=== PATIENT | male | born 1940 | race Caucasian/White ===

== ENCOUNTER → 2018-02-16 | Outpatient (REF) | payer MEDICARE ==
[2018-02-16 12:12] LABS: INR 1.16
== END ==
LOC: M LABDRAW1 11:33
DX: M17.0 Bilateral primary osteoarthritis of knee (principal); Z79.01 Long term (current) use of anticoagulants
CPT/HCPCS: 85610

== ENCOUNTER 2018-05-08 18:36 | Emergency (ER) | payer MEDICARE ==
[~2018-05-08] VITALS: Ht 172.7 cm; Wt 100.0 kg
[~2018-05-08 18:36] MED LIST: CALC1TAB63 PO; CLAR10CA3 PO; DOXA2TAB3 PO; FURO40TA2 PO; HYDR-3713 PO; LOSA25TA14 PO; MOBI4TAB PO; MULTCAP PO; OCUVTAB PO; PROZ10CA7 PO; TRAM50TA2 PO; TRAV04OPD OS; TRAZ-160 PO; TROS20TA3 PO; TYLE1TAB5 PO; VITA500T PO; XARE20TA PO
[2018-05-08] MEDS ORDERED: DOXA1TAB42 PO (18:57)
[2018-05-08] MEDS ORDERED: VESI5TAB2 PO (18:57)
[2018-05-08] MEDS ORDERED: SILD1TAB8 PO (18:57)
[2018-05-08] MEDS ORDERED: LOSA25TA14 PO (18:57)
[2018-05-08] MEDS ORDERED: HYDR-3716 PO (18:57)
[2018-05-08 19:28] LABS: BASO % 0.3 % (0.0-1.0); EOS # 0.1 10^3/uL (0.0-0.50); EOS % 1.2 % (0.0-3.0); HEMATOCRIT 39.5 % (42.0-52.0); HEMOGLOBIN 13.2 g/dl (13.5-17.5); LYMPH # 0.9 10^3/uL (1.5-4.5); LYMPH % 7.9 % (24.0-44.0); MEAN CORPUSCULAR HEMOGLOBIN 33.8 pg (27.0-33.0); MEAN CORPUSCULAR HGB CONC 33.4 g/dl (32.0-36.5); MONO # 0.6 10^3/uL (0.0-0.8); MONO % 5.8 % (0.0-5.0); NEUTROPHILS # 9.4 10^3/uL (1.8-7.7); NEUTROPHILS % 84.5 % (36.0-66.0); PLATELET COUNT, AUTOMATED 198 10^3/uL (150-450); RED BLOOD COUNT 3.91 10^6/uL (4.30-6.10); WHITE BLOOD COUNT 11.1 10^3/uL (4.0-10.0)
[2018-05-08 19:39] LABS: INR 1.35; PROTHROMBIN TIME 16.9 SECONDS (12.1-14.4)
[2018-05-08 19:40] LABS: PARTIAL THROMBOPLASTIN TIME 38.2 SECONDS (25.4-37.6)
[2018-05-08] MEDS ORDERED: NS 1,000 ML IV ONE (19:45)
[2018-05-08] MEDS ORDERED: MORPHINE 4 MG/ML 1ML VIAL/SYRINGE (J2270) IV ONE (19:45)
[2018-05-08 19:50] LABS: ALBUMIN 3.7 GM/DL (3.2-5.2); ALT/SGPT 26 U/L (12-78); AMYLASE 45 U/L (25-115); BILIRUBIN,DIRECT 0.5 MG/DL (0.0-0.2); BILIRUBIN,TOTAL 1.7 MG/DL (0.2-1.0); BLOOD UREA NITROGEN 24 MG/DL (7-18); CALCIUM LEVEL 8.9 MG/DL (8.8-10.2); CARBON DIOXIDE LEVEL 28 MEQ/L (21-32); CHLORIDE LEVEL 104 MEQ/L (98-107); CREATININE FOR GFR 1.08 MG/DL (0.70-1.30); GLOMERULAR FILTRATION RATE > 60.0 (>42); GLUCOSE, FASTING 137 MG/DL (70-100); LIPASE 93 U/L (73-393); POTASSIUM SERUM 3.6 MEQ/L (3.5-5.1); SODIUM LEVEL 139 MEQ/L (136-145)
--- NOTE | 2018-05-08 21:22 | REPVR ---
EXAM: CT Abdomen and Pelvis Without Contrast EXAM DATE/TIME: 05/08/2018 7:48 PM CLINICAL HISTORY: 78 years old, male; Pain; Abdominal pain; Localized; Lower; Additional info: Groin pain, gross hematuria TECHNIQUE: Axial computed tomography images of the abdomen and pelvis without contrast. All CT scans at this facility use at least one of these dose optimization techniques: automated exposure control; mA and/or kV adjustment per patient size (includes targeted exams where dose is matched to clinical indication); or iterative reconstruction. Coronal and sagittal reformatted images were created and reviewed. COMPARISON: No relevant prior studies available. FINDINGS: Tubes, catheters and devices: The pacemaker electrode is seen in the right ventricle. Lower thorax: The heart is slightly enlarged. There is mitral valvular calcification. There is a small hiatal hernia ABDOMEN: Liver: Normal. No mass. Gallbladder and bile ducts: Normal. No calcified stones. No ductal dilation. Pancreas: Normal. No ductal dilation. Spleen: Normal. No splenomegaly. Adrenals: Normal. No mass. Kidneys and ureters: Normal. No hydronephrosis. Stomach and bowel: Mild inflammatory changes surround the sigmoid colon. There is sigmoid colonic diverticulosis. The inflamed segment of sigmoid colon is contiguous with the left lateral margin of the bladder. Appendix: No evidence of appendicitis. PELVIS: Bladder: The bladder is distended measuring 12.9 x 9.5 x 10.2 cm for a volume of 650 cc. mild inflammatory changes related to the diverticulitis surround a left lateral margin of the bladder. Reproductive: A TURP defect is noted in the prostate. The prostate is lobulated in contour measuring at least 5.5 x 5 x 3.8 cm. ABDOMEN and PELVIS: Intraperitoneal space: Normal. No free air. No significant fluid collection. Bones/joints: There is advanced osteoarthritis of the right hip joint with joint space narrowing subchondral sclerosis and cyst formation. Large marginal osteophytes are present. There is mild narrowing of the left hip joint as well. There is advanced discogenic disease within the lumbar spine. Grade 1 spondylolisthesis at L3-4 with the 5 millimeters of anterolisthesis of L4 with respect to L3. Grade 1 spondylolisthesis at L4-5- with 4.6 mm of anterolisthesis of L5 with respect to L4. Degenerative changes noted between the spinous processes from L2-S1. Facet arthropathy in the lower lumbar spine. Soft tissues: There small bilateral inguinal hernias containing fat. There is an 8mm umbilical hernia containing fat. Vasculature: Normal. No abdominal aortic aneurysm. Lymph nodes: Normal. No enlarged lymph nodes. IMPRESSION: 1. Sigmoid colonic diverticulitis. No abscess. No perforation. 2. TURP defect within the prostate. The prostate is enlarged. 3. Small hiatal hernia 4. Small bilateral inguinal hernias containing fat. Umbilical hernia containing fat. No evidence of strangulation. Electronically signed by: Sabine Henriquez On 05/08/2018 21:22:00 PM
[2018-05-08] MEDS ORDERED: BACT800T5 PO (22:39)
[2018-05-08] MEDS ORDERED: FLOM0.4C39 PO (22:39)
[2018-05-08] MEDS ORDERED: BACTRIM 160MG/800MG DS TAB PO ONE (22:45)
[2018-05-08 23:00] VITALS: BP 145/84
[2018-05-08] MEDS ORDERED: NORCO, ANEXSIA 5/325MG TABLET (HYDROcodone/ACETAMINOPHEN) PO ONE (23:15)
--- NOTE | 2018-05-09 06:03 | ECGEPIP ---
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 Order Number: [id number] Reading MD: Ananth Choe Measurements Intervals [place] Rate: 65 P: VT: 0 QRS: 14 QRSD: 102 T: -37 QT: 426 QTc: 443 Interpretive Statements ATRIAL FIBRILLATION WITH ABERRANT CONDUCTION OR VENTRICULAR PREMATURE COMPLEXES INCOMPLETE RIGHT BUNDLE BRANCH BLOCK MODERATE T-WAVE ABNORMALITY, CONSIDER LATERAL ISCHEMIA NO PRIORS FOR COMPARISON Electronically Signed On 05-09-2018 6:03:33 EST by Ananth Choe
== END 2018-05-08 23:59 | disposition left against medical advice (07) ==
LOC: M ED 18:36
DX: R33.9 Retention of urine, unspecified (principal); R31.0 Gross hematuria; I10 Essential (primary) hypertension; N40.0 Benign prostatic hyperplasia without lower urinary tract symptoms; I48.91 Unspecified atrial fibrillation; Z79.899 Other long term (current) drug therapy; Z79.01 Long term (current) use of anticoagulants
CPT/HCPCS: 36415; 51702; 74176; 80048; 80076; 81001; 82150; 83690; 85025; 85610; 85730; 87086; 93005; 96374; 99284; J2270

== ENCOUNTER → 2018-05-10 | Outpatient (CLI) | payer MEDICARE ==
[~2018-05-10] MED LIST changes: +APAP500T10 PO; +BACT800T5 PO; +CALC600T7 PO; +DOXA1TAB42 PO; +FLOM0.4C39 PO; +FLUO10CA8 PO; +HYDR-3716 PO; +KEFL500C17 PO; +MELA3TAB49 PO; +MELO15TA28 PO; +MELO7.5T7 PO; +OXYC1TAB23 PO; +PERC5TAB12 PO; +SILD1TAB8 PO; +TRAV04OPD OU; +VESI5TAB2 PO; +VITA100T59 PO; +VITMTA PO; +XARE10TA PO; +[UNRECOGNIZED DRUG - OTHER] PO; +[UNRECOGNIZED DRUG - OTHER] PO
--- NOTE | 2018-05-10 13:55 | REP ---
URINARY TRACT SONOGRAPHY: HISTORY: Urinary retention. Moon catheter. FINDINGS: Scanning at the level of the urinary bladder demonstrates a Moon balloon at the base of the bladder. Bladder wall is minimally thickened. No other abnormality. Emptying ureteral jets are confirmed bilaterally on color Doppler interrogation of the bladder lumen from both ureters. Renal cortical echogenicity pattern is normal and renal contours are smooth bilaterally. There is no evidence of hydronephrosis on either side. No renal mass or cyst is seen. The right kidney measures 12.3 x 5.3 x 4.8 cm. Left renal dimensions are 11.6 x 5.3 x 6.3 cm. IMPRESSION: Moon catheter in the urinary bladder. Minimal diffuse bladder wall thickening. No hydronephrosis or other upper tract abnormality. Electronically Signed by Ivan Rivera MD 05/10/2018 07:28 P
== END ==
LOC: M SMT 10:55
PROVIDERS: ATTEND Urology Pediatric Urology
DX: R33.9 Retention of urine, unspecified (principal); Z97.8 Presence of other specified devices
CPT/HCPCS: 76770; 76857; G0463

== ENCOUNTER → 2018-05-19 | Outpatient (CLI) | payer MEDICARE ==
[~2018-05-19] MED LIST changes: -APAP500T10 PO; -CALC600T7 PO; +CYSTO-CONRAY II 17.2% 250ML VIAL (Q9958) As Ordered ONE; -FLUO10CA8 PO; -KEFL500C17 PO; -MELA3TAB49 PO; -MELO15TA28 PO; -MELO7.5T7 PO; -OXYC1TAB23 PO; -PERC5TAB12 PO; -TRAV04OPD OU; -VITA100T59 PO; -VITMTA PO; -XARE10TA PO; -[UNRECOGNIZED DRUG - OTHER] PO; -[UNRECOGNIZED DRUG - OTHER] PO
--- NOTE | 2018-05-19 17:36 | REP ---
Voiding cystourethrogram: History: Urinary retention. Findings: The patient's indwelling Moon catheter was utilized to fill the bladder. The patient had limited bladder capacity and spontaneously voided around the catheter. No urethral abnormality is observed on voiding films. There is trabeculation of the bladder wall confirming limited filling. No reflux was observed. There is complete emptying. We were not able to retrieve a clean catch urine specimen after removal of the catheter. No filling defect is seen. Impression: Limited bladder capacity, bladder trabeculation. No urethral abnormality or reflux seen. 0.4 minutes of fluoroscopy time was utilized. Electronically Signed by Ivan Rivera MD 05/19/2018 07:43 P
== END ==
LOC: M RADPRO 14:02
PROVIDERS: ATTEND Urology Pediatric Urology
DX: N32.89 Other specified disorders of bladder (principal)
CPT/HCPCS: 51600; 74455; Q9958

== ENCOUNTER → 2018-05-20 | Outpatient (CLI) | payer MEDICARE ==
[~2018-05-20] MED LIST changes: +CALC600T7 PO; -CYSTO-CONRAY II 17.2% 250ML VIAL (Q9958) As Ordered ONE; +FLUO10CA8 PO; +MELA3TAB49 PO; +VITA100T59 PO; +VITMTA PO; +[UNRECOGNIZED DRUG - OTHER] PO
[2018-05-20 18:56] LABS: AMORPHOUS SEDIMENT LARGE (NEGATIVE); BACTERIA, URINE AUTO NEGATIVE (NEGATIVE); MUCUS, URINE SMALL (NEGATIVE); RBC, URINE AUTO 1 /HPF (0-3); SQUAMOUS EPITHELIAL CELL UR AU 0 /HPF (0-6); WBC, URINE AUTO 8 /HPF (0-3)
[2018-05-23 00:06] LABS: PSA % FREE 11.7 % (.); PSA FREE 0.76 ng/mL; PSA TOTAL 6.5 ng/mL (0.0-4.0)
== END ==
LOC: M SMT 13:46
PROVIDERS: ATTEND Specialist
DX: R33.9 Retention of urine, unspecified (principal); R97.20 Elevated prostate specific antigen [PSA]; R31.9 Hematuria, unspecified
CPT/HCPCS: 36415; 51798; 81015; 84154; 87086; G0463

== ENCOUNTER 2018-05-24 07:30 | Inpatient (IN) | payer MEDICARE ==
[~2018-05-24] VITALS: Ht 167.6 cm; Wt 102.9 kg
[~2018-05-24 07:30] MED LIST changes: -CALC600T7 PO; -FLUO10CA8 PO; -MELA3TAB49 PO; -VITA100T59 PO; -VITMTA PO; -[UNRECOGNIZED DRUG - OTHER] PO
[2018-06-10] MEDS ORDERED: [UNRECOGNIZED DRUG - OTHER] PO (08:30)
[2018-06-10] MEDS ORDERED: FURO40TA2 PO (08:30)
[2018-06-10] MEDS ORDERED: VITA100T59 PO (08:30)
[2018-06-10] MEDS ORDERED: TRAZ-160 PO (08:30)
[2018-06-10] MEDS ORDERED: VITMTA PO (08:30)
[2018-06-10] MEDS ORDERED: TYLE1TAB5 PO (08:30)
[2018-06-10] MEDS ORDERED: MELA3TAB49 PO (08:30)
[2018-06-10] MEDS ORDERED: FLUO10CA8 PO (08:30)
[2018-06-10] MEDS ORDERED: CALC600T7 PO (08:30)
[2018-06-10] MEDS ORDERED: HYDR-3713 PO (08:30)
[2018-06-10] MEDS ORDERED: CLAR10CA3 PO (08:30)
[2018-06-10] MEDS ORDERED: TRAV04OPD OU (08:30)
[2018-06-10] MEDS ORDERED: XARE20TA PO (08:30)
--- NOTE | 2018-06-15 12:21 | HPE ---
DATE OF ADMISSION: 06/16/2018 ATTENDING PHYSICIAN: Dr. Rell Christine CHIEF COMPLAINT: Right hip pain and stiffness. HISTORY OF PRESENT ILLNESS: This a pleasant 78-year-old male with progressively worsening right hip pain and stiffness who failed to improve with conservative management and has elected for surgery for his continued symptoms. He has been consented for a right total hip arthroplasty by Dr. Christine. ALLERGIES: NO KNOWN DRUG ALLERGIES. CURRENT MEDICATIONS: - furosemide 40 mg 1 by mouth daily - melatonin 3 mg 1 by mouth at bedtime - Mobic 7.5 mg 1 by mouth daily - Bactrim DS discontinued - Travatan Z 0.004% - trazodone 50 mg - extra strength Tylenol as needed - Xarelto PAST MEDICAL HISTORY: 1. Hypertension 2. Atrial fibrillation (A-fib) 3. Benign prostatic hypertrophy. PAST SURGICAL HISTORY: 1. Appendectomy. 2. Vasectomy. 3. Pacemaker. 4. Transurethral resection of prostate. FAMILY HISTORY: Noncontributory. SOCIAL HISTORY: The patient does not smoke and does not use alcohol. REVIEW OF SYSTEMS: Denies fever, chills, chest pain, shortness breath, nausea, vomiting, diarrhea. Denies any recent upper respiratory or urinary tract infection symptoms. PHYSICAL EXAMINATION: VITAL SIGNS: Height 5/5, weight 225.6, temperature 98.6, blood pressure 138/72, pulse 76. HEENT: Normocephalic, atraumatic. LUNGS: Clear to auscultation bilaterally with no wheezes, rales, rhonchi. CARDIOVASCULAR: S1 and S2 auscultated. ABDOMEN: Soft, nontender. NECK: Supple with no lymphadenopathy or jugular venous distention (JVD). RIGHT HIP: Intact range of motion, tenderness on palpation about the groin, overlying skin is intact. EKG noted with atrial fibrillation (A-fib), right bundle branch block. Chest x-ray cardiomegaly with pacemaker, no acute changes. LABORATORY DATA: White blood count 6, red blood count 3.85, hemoglobin 12.7, hematocrit 37.9, PT 25.5, INR 2.27, BUN 18, creatinine of 1.08. Please add to the current medications. Preoperative medical optimization by Dr. Jiang reviewed today on chart. Additionally urology clearance reviewed today on chart. IMPRESSION: 1. Right hip degenerative changes. 2. Symptomatic osteoarthritis. PLAN: Consented for right total hip arthroplasty by Dr. Christine
[2018-06-16] VITALS (7 sets, daily range): BP systolic 101–158; BP diastolic 68–96
[2018-06-16] MEDS ORDERED: LR 1,000 ML IV SCH ×2 (05:45→10:30)
[2018-06-16] MEDS ORDERED: fentaNYL 100 MCG/2 ML INJECTION (J3010) As Ordered ONE (06:59)
[2018-06-16] MEDS ORDERED: PROPOFOL 200 MG/20 ML VIAL As Ordered ONE (06:59)
[2018-06-16] MEDS ORDERED: ROCURONIUM BROMIDE 50 MG/5 ML VIAL As Ordered ONE (06:59)
[2018-06-16] MEDS ORDERED: ONDANSETRON 4MG/2ML VIAL (J2405) As Ordered ONE (06:59)
[2018-06-16] MEDS ORDERED: LIDOCAINE 2% INJ 100 MG/5 ML SDV (FOR ANES.) As Ordered ONE (06:59)
[2018-06-16] MEDS ORDERED: MIDAZOLAM INJ 2 MG/2 ML VIAL (J2250) As Ordered ONE (07:00)
[2018-06-16] MEDS ORDERED: ACETAMINOPHEN 500 MG TAB As Ordered ONE (07:00)
[2018-06-16] MEDS ORDERED: ACETAMINOPHEN 500 MG TAB PO ONE (07:15)
[2018-06-16] MEDS ORDERED: ceFAZolin 1GM INJ (J0690 PER 500MG) As Ordered ONE (07:16)
[2018-06-16 07:48] LABS: INR 1.17; PROTHROMBIN TIME 15.1 SECONDS (12.1-14.4)
[2018-06-16] MEDS ORDERED: ePHEDrine SULFATE 25 MG/5 ML(5MG/ML) SYRINGE As Ordered ONE (08:49)
[2018-06-16] MEDS ORDERED: PHENYLephrine HCL 500 MCG/5 ML (100MCG/ML) SYRINGE (J2370) As Ordered ONE (08:49)
[2018-06-16] MEDS ORDERED: MORPHINE 1MG/ML IN 0.9% NACL 100ML IV BAG As Ordered ONE (09:46)
[2018-06-16] MEDS ORDERED: METOCLOPRAMIDE INJ 10MG/2ML VIAL (J2765) IV PRN (10:30)
[2018-06-16] MEDS ORDERED: NALBUPHINE HCL 10 MG/ML AMP (J2300) IV PRN (10:30)
[2018-06-16] MEDS ORDERED: FLEET ENEMA PR PRN (10:30)
[2018-06-16] MEDS ORDERED: ACETAMINOPHEN TAB 650MG DOSE (2X325MG) PO PRN (10:30)
[2018-06-16] MEDS ORDERED: NALOXONE INJ 0.4 MG/1 ML VIAL (J2310) IV PRN (10:30)
[2018-06-16] MEDS ORDERED: fentaNYL 100 MCG/2 ML INJECTION (J3010) IV PRN (10:30)
[2018-06-16] MEDS ORDERED: MORPHINE 1MG/ML IN 0.9% NACL 100ML IV BAG IV PRN (10:30)
[2018-06-16] MEDS ORDERED: diphenhydrAMINE INJ 50MG/ML VIAL (J1200) IV PRN (10:30)
[2018-06-16] MEDS ORDERED: EPIDURAL/PCA KEYS XX PRN (10:30)
[2018-06-16] MEDS ORDERED: PERCOCET 5MG/325MG TAB PO PRN (10:30)
[2018-06-16] MEDS ORDERED: MEPERIDINE INJ 25 MG/ML VIAL (J2175) IV PRN (10:30)
[2018-06-16] MEDS ORDERED: ONDANSETRON 4MG/2ML VIAL (J2405) IV PRN ×2 (10:30)
[2018-06-16] MEDS: LR 1,000 ML IV SCH (14:22)
--- NOTE | 2018-06-16 14:56 | REP ---
RIGHT HIP: Three portable views of the right hip are performed. There is a total hip prosthesis which appears to be in good position. Structures are well aligned. Metallic skin eder are seen laterally. Metallic clips are seen medially near the scrotum. There are vascular calcifications in the soft tissues. Electronically Signed by Pablo Uriarte MD 06/16/2018 08:11 P
[2018-06-16] MEDS ORDERED: RAMELTEON 8 MG TAB (ROZEREM) PO PRN (22:15)
[2018-06-17] MEDS: LR 1,000 ML IV SCH (01:59)
[2018-06-17 02:00] VITALS: BP 147/97
[2018-06-17 06:00] VITALS: BP 135/89
[2018-06-17] MEDS ORDERED: PERCOCET 5MG/325MG TAB PO PRN ×2 (06:30)
[2018-06-17] MEDS ORDERED: ONDANSETRON 4 MG TAB (S0181) PO PRN (06:30)
[2018-06-17 06:53] LABS: HEMATOCRIT 33.3 % (42.0-52.0); HEMOGLOBIN 10.8 g/dl (13.5-17.5); MEAN CORPUSCULAR HEMOGLOBIN 33.5 pg (27.0-33.0); MEAN CORPUSCULAR HGB CONC 32.4 g/dl (32.0-36.5); MEAN CORPUSCULAR VOLUME 103.4 fl (80.0-96.0); PLATELET COUNT, AUTOMATED 194 10^3/uL (150-450); RED BLOOD COUNT 3.22 10^6/uL (4.30-6.10); WHITE BLOOD COUNT 12.3 10^3/uL (4.0-10.0)
--- NOTE | 2018-06-17 06:54 | CR ---
DATE OF CONSULTATION: 06/16/2018 REQUESTING PROVIDER: Dr. Christine REASON FOR CONSULTATION: Medical management status post right hip arthroplasty. HISTORY OF PRESENT ILLNESS: This is a very pleasant 78-year-old male who had progressively worsening right hip pain and stiffness, failing to improve with conservative management. He had elective right hip arthroplasty this morning by Dr. Christine. He is seen at bedside on [address] and is doing well postoperatively. He denies any chest pain, shortness of breath, nausea, vomiting, constipation, or difficulty urinating. He denies fevers or chills. He states that he is receiving wonderful nursing care. He has no acute complaints. REVIEW OF SYSTEMS: CONSTITUTIONAL: Denies fevers, chills, weight loss, night sweats or changes to his appetite. HEENT: Denies headache, vision changes, runny nose, stuffy nose, epistaxis, sinus pain, tinnitus, sore throat or odynophagia. CARDIOVASCULAR: Denies chest pain, paroxysmal nocturnal dyspnea (PND), orthopnea, edema or palpitations. RESPIRATORY: Denies cough, sputum production, wheezes, hemoptysis, shortness of breath. GASTROINTESTINAL (GI): Denies any belly pain, difficulty swallowing, indigestion, anorexia, nausea, vomiting, diarrhea, constipation, obstipation, hematemesis, hematochezia, melena or tenesmus. GENITOURINARY: Denies any dysuria, hematuria or incontinence. Does admit to a history of benign prostatic hypertrophy (BPH) and will sometimes have nocturia. MUSCULOSKELETAL: Admits to a history of arthritis, but denies any joint swelling or stiffness at the moment. He is status post right total hip arthroplasty. INTEGUMENTARY: Denies any new rashes, lesions, striae or pruritus. NEURO: Denies any changes to sight/smell/hearing/taste, seizures, headaches, paresthesias, numbness, or dyspnea. PSYCH: Positive for history of mild depression. Denies anxiety, paranoia, anhedonia or diya. ENDOCRINE: Denies diarrhea, sweatiness, mood swings, tremors, palpitations, constipation, dry skin or thinning hair. He denies polydipsia, polyphagia or polyuria. HEMATOLOGIC: Denies anemia, purpura or petechiae. He states that he has had some blood oozing from his incision site. LYMPHATIC: Denies any new lumps or bumps anywhere. PAST MEDICAL HISTORY: 1. Hypertension. 2. Atrial fibrillation. 3. Congestive heart failure. 4. BPH. 5. Osteoarthritis. 6. Depression. 7. Insomnia. 8. Glaucoma. PAST SURGICAL HISTORY: 1. Appendectomy. 2. Vasectomy. 3. Pacemaker, which the patient states was for atrial fibrillation. He does follow with Dr. Dykes as outpatient. 4. Transurethral resection of the prostate in 2013. HOME MEDICATIONS: - vitamin C 100 mg by mouth daily - calcium/vitamin D 600/200 mg one tablet by mouth daily - doxazosin 1 mg by mouth twice a day - fluoxetine 10 mg by mouth daily - furosemide 40 mg by mouth daily - loratadine 10 mg by mouth daily - losartan 25 mg by mouth daily - melatonin 3 mg by mouth every evening as needed - multivitamin one tablet by mouth every morning - Xarelto 20 mg by mouth daily - sildenafil 40 mg by mouth daily as needed - Travatan Z one drop left eye (OS) every evening - trazodone 50 mg by mouth at bedtime as needed FAMILY HISTORY: Noncontributory. SOCIAL HISTORY: The patient denies tobacco or drug use. He states that occasionally he will have one beer or a glass of wine at night sometimes. He recently moved here in August from [place], and has lived in [place] as well as [facility] previously. Denies any recent travel except up to [facility]. He currently lives with his . PHYSICAL EXAMINATION: VITAL SIGNS: Temperature 97.3, pulse 79 and irregular, respiratory rate 20, blood pressure 158/96, pulse oximetry is 95% on room air. GENERAL: Awake, alert, well-nourished elderly male in no acute distress. He is very pleasant and cooperative. HEENT: Normocephalic, atraumatic. Mucous membranes are moist. Extraocular eye muscles are intact. Pupils are equal, round and reactive to light bilaterally. NECK: Supple, nontender, no lymphadenopathy. HEART: Irregular rhythm, not tachycardic. No murmurs, gallops or rubs. LUNGS: Clear to auscultation bilaterally. No wheezes, rhonchi or rales. ABDOMEN: Normoactive bowel sounds, soft, nontender. EXTREMITIES: There is a bandage over the right hip has some blood saturation at the inferior aspect. Otherwise, is dry and intact. Peripheral pulses are 2+ bilaterally. There is no clubbing, cyanosis or edema. SKIN: No rashes are seen. NEURO: Awake, alert and oriented times three. 5/5 muscle strength bilaterally in the upper extremities. The patient is moving his extremities freely and there is no focal neurologic deficit noted. LABORATORY DATA: Coagulation: PT 15.1, INR 1.17. ESR 8. Blood bank: Blood type A+, antibody screen negative. IMAGING STUDIES: Right hip x-ray postop shows a total hip prosthesis in good position, structures are well aligned, metallic skin eder are seen laterally. Metallic clips seen medially near the scrotum. Vascular calcifications in the soft tissues. ASSESSMENT: This is a very pleasant 78-year-old male who is status post right total hip arthroplasty by Dr. Christine, doing well postoperatively. Hospitalist service was consulted for medical management. PLAN: 1. Right hip osteoarthritis. Status post right hip arthroplasty by Dr. Christine this morning. Pain management per ortho. 2. Congestive heart failure (CHF). Outpatient he sees Dr. Dykes. We will resume his furosemide in the morning. 3. Atrial fibrillation. Currently not on any rate controlling medications that I can see. His rate is in the 70s at the moment. He is on Xarelto at home. Anticoagulation per orthopedics. 4. Hypertension. His blood pressure is stable right now. We will resume his home losartan, Lasix and doxazosin tomorrow morning. 5. BPH. He is status post transurethral resection of prostate (TURP) in 2013. We will resume his doxazosin tomorrow morning. 6. Depression. Continue fluoxetine tomorrow. 7. Insomnia. The patient takes melatonin and trazodone outpatient for sleep as needed. I have ordered Rozerem for him as he needs it. 8. Glaucoma. Continue his Travatan Z 0.004% eye drops. 9. Seasonal allergies. Continue his loratadine. 10. DVT prophylaxis. The patient has thromboembolic deterrent stockings (TEDS) and sequentials. Anticoagulation per orthopedics. DISPOSITION: Per ortho. The patient will be under the care of Dr. Hernandez starting at 0700 hours on 06/17/2018. My faculty preceptor for this patient encounter was physically present during the encounter and was fully available. All aspects of the patient interview, examination, medical decision making process, and medical care plan development were reviewed and approved by the faculty preceptor. The faculty preceptor is aware and concurs with the plan as stated in the body of this note and will attest to such by his/her co-signature.
[2018-06-17 07:05] LABS: INR 1.26
[2018-06-17 07:22] LABS: BLOOD UREA NITROGEN 22 MG/DL (7-18); CALCIUM LEVEL 8.1 MG/DL (8.8-10.2); CARBON DIOXIDE LEVEL 26 MEQ/L (21-32); CHLORIDE LEVEL 103 MEQ/L (98-107); GLOMERULAR FILTRATION RATE > 60.0 (>42); GLUCOSE, FASTING 153 MG/DL (70-100); POTASSIUM SERUM 4.1 MEQ/L (3.5-5.1); SODIUM LEVEL 136 MEQ/L (136-145)
[2018-06-17] MEDS ORDERED: XARE10TA PO (08:46)
[2018-06-17] MEDS ORDERED: PERC5TAB12 PO (08:46)
[2018-06-17] MEDS ORDERED: MULTIVITAMINS/MINERALS THERAP 1 TAB PO SCH (09:00)
[2018-06-17] MEDS ORDERED: DOXAZOSIN MESYLATE 1 MG TAB PO SCH (09:00)
[2018-06-17] MEDS ORDERED: FUROSEMIDE 40 MG TAB PO SCH (09:00)
[2018-06-17] MEDS ORDERED: LOSARTAN 50 MG TAB PO SCH (09:00)
[2018-06-17] MEDS ORDERED: MOM 30ML SUSPENSION UDC PO SCH (09:00)
[2018-06-17] MEDS ORDERED: FLUoxetine 10 MG CAP PO SCH (09:00)
[2018-06-17] MEDS ORDERED: LORATADINE 10 MG TAB PO SCH (09:00)
[2018-06-17] MEDS ORDERED: SENOKOT S TAB PO SCH (09:00)
[2018-06-17] MEDS ORDERED: MIRALAX *UNIT DOSE* 17GM PACKET PO SCH (09:00)
[2018-06-17 09:15] VITALS: BP 139/74
[2018-06-17 09:42] VITALS: BP 139/74
--- NOTE | 2018-06-17 15:18 | IPNPDOC ---
Text Note Date of Service The patient was seen on 06/17/18. NOTE Subjective: Patient was seen and examined at the bedside. , Currently patient denies any chest pain, shortness of breath or palpitations. Denies any nausea, vomiting, abdominal pain. He has not experienced a bowel movement yet. Has the ability to pass flatus. Patient has already started to work with physical therapy yesterday and will continue to do so today. . He is anticipated to clear physical therapy today. Objective: Vitals (See below) General: Lying in bed, no acute distress, comfortable, AAOx3 HEENT: NC, AT CVS: RRR, +S1S2 Lungs: Fair air entry b/l, -w/r/r Abdomen: Soft, ND, NT Extremities: - Edema, - Calf tenderness Assessment and plan: Right hip pain - likely 2/2 osteoarthritis - s/p total right hip arthroplasty (POD#1) - Presented to [facility] for an elective orthopedic procedure - Has received medical clearance via his outpatient provider - Pain control and physical therapy of the direction of orthopedic surgery Liz holcomb - Currently not on rate / rhythm control - Will be resuming Xarelto - Follows with Dr. Dykes as an outpatient HTN - BP well controlled - c/w Losartan CHF - c/w Furosemide BPH - s/p TURP 2014 - c/w Doxazosin on discharge Depression / Insomnia - Fluoxetine Glaucoma DVT prophylaxis - Will be resumed on Xarelto VS,Fishbone, I+O VS, Fishbone, I+O Laboratory Tests 06/17/18 06:40 Red Blood Count 3.22 L, Mean Corpuscular Volume 103.4 H, Mean Corpuscular Hemoglobin 33.5 H, Mean Corpuscular Hemoglobin Concent 32.4, Red Cell Distribution Width 13.7, Calcium Level 8.1 L Vital Signs Date Time Temp Pulse Resp B/P (MAP) Pulse Ox O2 Delivery O2 Flow Rate FiO2 06/17/18 09:42 139/74 06/17/18 09:40 16 06/17/18 09:15 97.2 66 94 06/16/18 11:55 Room Air I&O- Last 24 Hours up to 6 AM 06/17/18 06:00 Intake Total 2816 ml Output Total 550 ml Balance 2266 ml JOSIANE COHEN MD Jun 17, 2018 15:18
[2018-06-17] MEDS ORDERED: RIVAROXABAN 10 MG TAB (XARELTO) PO SCH (18:00)
[2018-06-17] MEDS ORDERED: LATANOPROST 0.005% OPHTH SOLN 2.5 ML OS SCH (21:00)
[2018-06-18] MEDS ORDERED: MELO15TA28 PO (01:48)
[2018-06-18] MEDS ORDERED: APAP500T10 PO (01:48)
[2018-06-18] MEDS ORDERED: OXYC1TAB23 PO (01:55)
[2018-06-18] MEDS ORDERED: [UNRECOGNIZED DRUG - OTHER] PO (04:42)
[2018-06-18] MEDS ORDERED: MELO7.5T7 PO (04:43)
--- NOTE | 2018-06-18 13:44 | RO ---
DATE OF PROCEDURE: 06/16/2018 PREOPERATIVE DIAGNOSIS: Right hip degenerative arthritis. POSTOPERATIVE DIAGNOSIS: Right hip degenerative arthritis. PROCEDURE: Right total hip arthroplasty using a size 62 Gription cup with a neutral 62-mm liner and a 40-mm femoral head with +1.5 neck high-offset with a size 6 [place] stem. SURGEON: Edmar Christine MD SPOILAGE WORKER: Cade Galicia PA-C ANESTHESIA: Spinal. COMPLICATIONS: None. ESTIMATED BLOOD LOSS: 200 mL. SPECIMENS: Femoral head. DESCRIPTION OF PROCEDURE: Antibiotics were given intravenously preoperatively, and a successful spinal anesthetic was induced. He was placed in a lateral decubitus position. His right hip uppermost, down leg well padded, especially the perineal nerve, and the axillary roll was utilized. The right hip area was then carefully prepped and draped in the usual sterile fashion. After appropriate time-out, a longitudinal incision was made for a direct anterolateral approach to the hip. Bovie cautery was used to coagulate crossing vessels down to the tensor fascia, which was then divided in line with the skin incision. Then, the tensor fascia was divided in line with the skin incision. We split the gluteus medius, anterior one-third and posterior two-third junctions. We carefully dissected down to the gluteus minimus and anterior hip capsule, divided it longitudinally, carefully dissected off the anterior femur as we eventually dislocated the hip anteriorly. A starter reamer was placed in the pyriformis fossa, followed by the canal-finding reamer, then the lateralizing reamer. Then, we reamed up to a size 6 ultimately. A femoral neck osteotomy performed. Broaching begun up to a size 6 broach. A proximal femoral planer was utilized. We then exposed the acetabulum and did a labral excision 360 degrees. Then began reaming, beginning at 53, advanced up to 61. The trial 62 fit nicely. There was a couple of large cysts in the acetabulum which were curetted out and then bone grafted with a bone graft from the proximal femur. Then, the real #62 cup was placed without difficulty. It had good fixation. We irrigated prior to placing this in and then irrigated again and then placed the 62 liner. It fit nicely. We then placed the #6 broach, trialed with a high-offset 1.5 combination neck and head and then reduced the hip. It was found to be quite stable with flexion internal rotation and extension external rotation and minimal soft tissue telescoping. Thus, I felt this was the appropriate size to use. We removed the trial components, copiously irrigated out the femoral canal, placed the real #6 high-offset [place] stem, dried the trunnion, placed the 40 and +1.5 head and neck combination under the trunnion, then reduced the hip. Irrigated again. Closed the gluteus minimus and anterior capsule back anatomically with interrupted #1 polydioxanone suture (PDS) sutures. The gluteus medius was closed back anatomically with interrupted #1 PDS sutures. Then, we irrigated again. Then, closed the tensor fascia with a running #1 Stratafix. The subdermal tissues were closed with interrupted 2-0 PDS sutures, followed by eder and an Optifoam dressing, dry sterile bulky dressing. Then, he was turned supine and then transferred to the recovery room in stable condition. There were no intraoperative complications. ADDENDUM: 06/18/2018 Mr. Cade Galicia was critical to the success of this difficult operation by helping with appropriate soft tissue retraction, helping to dislocate the knee, relocate the hip several times throughout the operation, helped to close the wound, helped to prepare the patient, amongst many other tasks.
--- NOTE | 2018-06-20 22:15 | DSES ---
DATE OF ADMISSION: 06/16/2018 DATE OF DISCHARGE: 06/17/2018 DISCHARGE DIAGNOSIS: Right hip arthritis status post right total hip arthroplasty. HISTORY: This is a 78-year-old male with progressively worsening right hip pain and stiffness. He had failed to improve with conservative treatment. He elected for surgery for his continued symptoms. PROCEDURE PERFORMED: Right total hip arthroplasty. HOSPITAL COURSE: The patient was admitted on the day of surgery and underwent right total hip arthroplasty that was without complications. Afterward, the patient was up with physical therapy per the protocol and their pain was controlled. The patient was doing well on the day of discharge and was weightbearing as tolerated to his right lower extremity. He will resume preoperative medications and diet. He will use oral medications for pain control and he will use Xarelto 10 mg and thromboembolic deterrent stockings (TEDs) for 30 days postoperatively for deep vein thrombosis (DVT) prophylaxis. Additionally, the patient will follow up in the office in two weeks for wound check and staple removal. For further details please see the medical record.
== END 2018-06-17 11:05 | disposition home or self-care (01) | DRG 470 ==
LOC: M OR 06-16 05:34 → M MS5PR 06-16 12:02
PROVIDERS: ADMIT Orthopaedic Surgery; ATTEND Orthopaedic Surgery
PROC: 0SR902Z Replacement of Right Hip Joint with Metal on Polyethylene Synthetic Substitute, Open Approach (ICD-10-PCS; principal; 2018-06-16 07:30)
DX: M16.11 Unilateral primary osteoarthritis, right hip (principal); I11.0 Hypertensive heart disease with heart failure; I48.91 Unspecified atrial fibrillation; I50.9 Heart failure, unspecified; N40.0 Benign prostatic hyperplasia without lower urinary tract symptoms; F32.9 Major depressive disorder, single episode, unspecified; J30.2 Other seasonal allergic rhinitis; H40.9 Unspecified glaucoma; G47.00 Insomnia, unspecified; Z95.0 Presence of cardiac pacemaker; Z90.49 Acquired absence of other specified parts of digestive tract; Z90.79 Acquired absence of other genital organ(s); Z79.01 Long term (current) use of anticoagulants; Z79.899 Other long term (current) drug therapy; Z79.1 Long term (current) use of non-steroidal anti-inflammatories (NSAID)

== ENCOUNTER 2018-06-18 01:25 | Emergency (ER) | payer MEDICARE ==
[~2018-06-18] VITALS: Ht 167.6 cm; Wt 100.0 kg
[~2018-06-18 01:25] MED LIST changes: +CALC600T7 PO; +FLUO10CA8 PO; +MELA3TAB49 PO; +PERC5TAB12 PO; +TRAV04OPD OU; +VITA100T59 PO; +VITMTA PO; +XARE10TA PO; +[UNRECOGNIZED DRUG - OTHER] PO
[2018-06-18] MEDS ORDERED: MELO15TA28 PO (01:48)
[2018-06-18] MEDS ORDERED: APAP500T10 PO (01:48)
[2018-06-18] MEDS ORDERED: OXYC1TAB23 PO (01:55)
[2018-06-18 02:26] LABS: HEMATOCRIT 32.1 % (42.0-52.0); HEMOGLOBIN 10.5 g/dl (13.5-17.5); MEAN CORPUSCULAR HEMOGLOBIN 33.9 pg (27.0-33.0); MEAN CORPUSCULAR HGB CONC 32.7 g/dl (32.0-36.5); MEAN CORPUSCULAR VOLUME 103.5 fl (80.0-96.0); PLATELET COUNT, AUTOMATED 162 10^3/uL (150-450); WHITE BLOOD COUNT 10.4 10^3/uL (4.0-10.0)
[2018-06-18] MEDS ORDERED: PERCOCET 5MG/325MG TAB PO ONE (02:45)
--- NOTE | 2018-06-18 03:28 | ECGEPIP ---
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
[2018-06-18] MEDS ORDERED: [UNRECOGNIZED DRUG - OTHER] PO (04:42)
[2018-06-18] MEDS ORDERED: MELO7.5T7 PO (04:43)
[2018-06-18 05:14] LABS: BLOOD UREA NITROGEN 25 MG/DL (7-18); CALCIUM LEVEL 7.7 MG/DL (8.8-10.2); CARBON DIOXIDE LEVEL 27 MEQ/L (21-32); CHLORIDE LEVEL 105 MEQ/L (98-107); CREATININE FOR GFR 1.01 MG/DL (0.70-1.30); GLOMERULAR FILTRATION RATE > 60.0 (>42); GLUCOSE, FASTING 108 MG/DL (70-100); POTASSIUM SERUM 4.1 MEQ/L (3.5-5.1); SODIUM LEVEL 140 MEQ/L (136-145)
[2018-06-18 05:15] LABS: INR 2.03; PROTHROMBIN TIME 23.3 SECONDS (12.1-14.4)
[2018-06-18 05:16] LABS: PARTIAL THROMBOPLASTIN TIME 48.1 SECONDS (25.4-37.6)
[2018-06-18 06:00] VITALS: BP 120/64
--- NOTE | 2018-06-18 07:54 | REP ---
Right hip three views: There are two lateral views. The acetabular cup and femoral head component are suboptimally demonstrated on the 12/03 lateral views. On the AP view the components are tightly applied and in satisfactory positions alignment. Recommend follow-up lateral view. Electronically Signed by Pablo Cardenas MD 06/18/2018 07:46 A
== END 2018-06-18 06:25 | disposition home or self-care (01) ==
LOC: EDBD 01:25 → M ED 01:25 → CANBEDREQ 05:41 → M ED 06:25
DX: M96.842 Postprocedural seroma of a musculoskeletal structure following a musculoskeletal system procedure (principal); I48.91 Unspecified atrial fibrillation; I10 Essential (primary) hypertension

== ENCOUNTER 2018-06-25 10:41 | Emergency (ER) | payer MEDICARE ==
[~2018-06-25] VITALS: Ht 167.6 cm; Wt 102.3 kg
[~2018-06-25 10:41] MED LIST changes: +APAP500T10 PO; +MELO15TA28 PO; +MELO7.5T7 PO; +OXYC1TAB23 PO; +[UNRECOGNIZED DRUG - OTHER] PO
[2018-06-25 11:49] LABS: BASO % 0.4 % (0.0-1.0); EOS # 0.2 10^3/uL (0.0-0.50); EOS % 2.5 % (0.0-3.0); HEMATOCRIT 33.5 % (42.0-52.0); HEMOGLOBIN 10.8 g/dl (13.5-17.5); LYMPH # 0.9 10^3/uL (1.5-4.5); LYMPH % 12.2 % (24.0-44.0); MEAN CORPUSCULAR HEMOGLOBIN 33.1 pg (27.0-33.0); MEAN CORPUSCULAR HGB CONC 32.2 g/dl (32.0-36.5); MEAN CORPUSCULAR VOLUME 102.8 fl (80.0-96.0); MONO # 0.6 10^3/uL (0.0-0.8); MONO % 7.8 % (0.0-5.0); NEUTROPHILS # 5.8 10^3/uL (1.8-7.7); NEUTROPHILS % 76.3 % (36.0-66.0); PLATELET COUNT, AUTOMATED 269 10^3/uL (150-450); RED BLOOD COUNT 3.26 10^6/uL (4.30-6.10); WHITE BLOOD COUNT 7.6 10^3/uL (4.0-10.0)
[2018-06-25 12:02] LABS: INR 1.4; PROTHROMBIN TIME 17.4 SECONDS (12.1-14.4)
[2018-06-25 12:03] LABS: PARTIAL THROMBOPLASTIN TIME 40.9 SECONDS (25.4-37.6)
[2018-06-25 12:17] LABS: BLOOD UREA NITROGEN 15 MG/DL (7-18); CALCIUM LEVEL 8.6 MG/DL (8.8-10.2); CARBON DIOXIDE LEVEL 30 MEQ/L (21-32); CHLORIDE LEVEL 107 MEQ/L (98-107); CREATININE FOR GFR 1.06 MG/DL (0.70-1.30); GLOMERULAR FILTRATION RATE > 60.0 (>42); GLUCOSE, FASTING 131 MG/DL (70-100); POTASSIUM SERUM 4.4 MEQ/L (3.5-5.1); SODIUM LEVEL 144 MEQ/L (136-145)
--- NOTE | 2018-06-25 12:28 | REP ---
RIGHT LOWER EXTREMITY DOPPLER VENOUS ULTRASOUND: 06/25/2018. Clinical history: Status post right hip arthroplasty 06/16/2018. Postoperative swelling and pain. Findings: There were no prior studies. Technique: The deep venous system of the right lower extremity is evaluated with neavrez scale imaging, compression ultrasound, color imaging and duplex Doppler interrogation. Examination from the groin through the popliteal fossa into the proximal calf. Findings: There is full compressibility from the common femoral vein in the inguinal region through the popliteal vein. Color imaging confirms patency throughout the course of the deep venous system. There is respiratory variation and augmented flow at all levels. There is soft tissue edema in the lower extremity Impression: 1. No Doppler venous ultrasound evidence of DVT in the right lower extremity. Electronically Signed by Jacques Erickson MD 06/25/2018 12:20 P
[2018-06-25] MEDS ORDERED: PERCOCET 5MG/325MG TAB PO ONE (12:30)
[2018-06-25 12:42] VITALS: BP 126/68
[2018-06-25] MEDS ORDERED: KEFL500C17 PO (13:05)
== END 2018-06-25 13:15 | disposition home or self-care (01) ==
LOC: M ED 10:41
DX: R60.0 Localized edema (principal); L03.115 Cellulitis of right lower limb; Z98.890 Other specified postprocedural states; D62 Acute posthemorrhagic anemia; D68.9 Coagulation defect, unspecified; Z96.641 Presence of right artificial hip joint; I48.91 Unspecified atrial fibrillation; I10 Essential (primary) hypertension; G47.30 Sleep apnea, unspecified; N42.9 Disorder of prostate, unspecified; M54.9 Dorsalgia, unspecified; F32.9 Major depressive disorder, single episode, unspecified; Z88.5 Allergy status to narcotic agent; Z79.899 Other long term (current) drug therapy; Z79.01 Long term (current) use of anticoagulants; Z95.0 Presence of cardiac pacemaker

== ENCOUNTER → 2018-08-24 | Outpatient (CLI) | payer MEDICARE ==
[~2018-08-24] MED LIST changes: +KEFL500C17 PO
[2018-08-27 00:08] LABS: PSA % FREE 18.4 % (.); PSA FREE 0.9 ng/mL; PSA TOTAL 4.9 ng/mL (0.0-4.0)
== END ==
LOC: M SMT 13:59
PROVIDERS: ATTEND Specialist
DX: R97.20 Elevated prostate specific antigen [PSA] (principal)
CPT/HCPCS: 36415; 51798; 84154; G0463

== ENCOUNTER → 2018-10-28 | Outpatient (REF) | payer MEDICARE ==
[~2018-10-28] MED LIST changes: -TRAZ-160 PO; +TRAZ-252 PO
[2018-10-28 17:40] LABS: APPEARANCE, URINE CLEAR (CLEAR); BACTERIA, URINE AUTO NEGATIVE (NEGATIVE); BILIRUBIN, URINE AUTO NEGATIVE (NEGATIVE); BLOOD, URINE BLOOD NEGATIVE (NEGATIVE); COLOR, URINE YELLOW (YELLOW); GLUCOSE, URINE (UA) AUTO NEGATIVE (NEGATIVE); KETONE, URINE AUTO NEGATIVE (NEGATIVE); LEUKOCYTE ESTERASE, URINE AUTO NEGATIVE (NEGATIVE); MUCUS, URINE SMALL (NEGATIVE); NITRITE, URINE AUTO NEGATIVE (NEGATIVE); PROTEIN, URINE AUTO NEGATIVE (NEGATIVE); RBC, URINE AUTO 2 /HPF (0-3); SPECIFIC GRAVITY URINE AUTO 1.023 (1.002-1.035); SQUAMOUS EPITHELIAL CELL UR AU 0 /HPF (0-6); WBC, URINE AUTO 1 /HPF (0-3)
== END ==
LOC: M SMT 16:59
PROVIDERS: ATTEND Nurse Practitioner Women's Health
DX: R31.0 Gross hematuria (principal)
CPT/HCPCS: 51798; 81001; 87086; 88108; G0463

== ENCOUNTER → 2018-11-02 | Outpatient (REF) | payer MEDICARE ==
[~2018-11-02] MED LIST changes: +FLUO10CA15 PO; -FLUO10CA8 PO
== END ==
LOC: M SMT 12:47
PROVIDERS: ATTEND Urology
DX: R31.0 Gross hematuria (principal)

== ENCOUNTER → 2019-04-05 | Outpatient (CLI) | payer MEDICARE ==
[~2019-04-05] MED LIST changes: -FLUO10CA15 PO; +FLUO10CA8 PO
[2019-04-05 12:27] LABS: APPEARANCE, URINE CLOUDY (CLEAR); BACTERIA, URINE AUTO NEGATIVE (NEGATIVE); BILIRUBIN, URINE AUTO NEGATIVE (NEGATIVE); BLOOD, URINE BLOOD 3+ (NEGATIVE); COLOR, URINE YELLOW (YELLOW); GLUCOSE, URINE (UA) AUTO NEGATIVE (NEGATIVE); KETONE, URINE AUTO NEGATIVE (NEGATIVE); LEUKOCYTE ESTERASE, URINE AUTO NEGATIVE (NEGATIVE); MUCUS, URINE SMALL (NEGATIVE); NITRITE, URINE AUTO NEGATIVE (NEGATIVE); PROTEIN, URINE AUTO 1+ mg/dL (NEGATIVE); RBC, URINE AUTO TNTC /HPF (0-3); SPECIFIC GRAVITY URINE AUTO 1.021 (1.002-1.035); SQUAMOUS EPITHELIAL CELL UR AU 0 /HPF (0-6); UROBILINOGEN, URINE AUTO 0.2 mg/dL (0.0-2.0); WBC, URINE AUTO 14 /HPF (0-3)
[2019-04-05 12:30] LABS: HEMATOCRIT 41.4 % (42.0-52.0); HEMOGLOBIN 13.2 g/dl (13.5-17.5); MEAN CORPUSCULAR HEMOGLOBIN 34.1 pg (27.0-33.0); MEAN CORPUSCULAR HGB CONC 31.9 g/dl (32.0-36.5); PLATELET COUNT, AUTOMATED 199 10^3/uL (150-450); RED BLOOD COUNT 3.87 10^6/uL (4.30-6.10); WHITE BLOOD COUNT 7.4 10^3/uL (4.0-10.0)
[2019-04-05 12:55] LABS: ALBUMIN 3.6 GM/DL (3.2-5.2); ALT/SGPT 20 U/L (12-78); BLOOD UREA NITROGEN 22 MG/DL (7-18); CARBON DIOXIDE LEVEL 30 MEQ/L (21-32); CHLORIDE LEVEL 110 MEQ/L (98-107); CREATININE FOR GFR 1.05 MG/DL (0.70-1.30); GLOMERULAR FILTRATION RATE > 60.0 (>42); GLUCOSE, FASTING 95 MG/DL (70-100); POTASSIUM SERUM 4.6 MEQ/L (3.5-5.1); PROSTATIC SPECIFIC AG MONITOR 3.63 NG/ML (< 4.00); SODIUM LEVEL 144 MEQ/L (136-145); TOTAL PROTEIN 6.5 GM/DL (6.4-8.2)
== END ==
LOC: M LAB 11:15
PROVIDERS: ATTEND Family Medicine
DX: I10 Essential (primary) hypertension (principal); R31.9 Hematuria, unspecified

== ENCOUNTER → 2019-05-02 | Outpatient (CLI) | payer MEDICARE ==
[~2019-05-02] MED LIST changes: +FLUO10CA15 PO; -FLUO10CA8 PO
--- NOTE | 2019-05-02 10:19 | REP ---
Two-view chest: 05/02/2019. Indication: Dyspnea. COPD. Comparison: 05/13/2018. Findings: Single lead left-sided pacemaker is unchanged in position. Mild cardiomegaly is redemonstrated. There is no air space consolidation, pleural effusion or pneumothorax. Multilevel degenerative sequelae of the thoracic spine are again noted. Impression: No acute cardiopulmonary process. Cardiomegaly with pacemaker unchanged in position. Electronically Signed by Brian Jo DO 05/02/2019 10:10 A
== END ==
LOC: M RAD 09:47
PROVIDERS: ATTEND Family Medicine
DX: J44.9 Chronic obstructive pulmonary disease, unspecified (principal); I51.7 Cardiomegaly; Z95.0 Presence of cardiac pacemaker

== ENCOUNTER → 2019-11-08 | Outpatient (REF) | payer MEDICARE ==
[~2019-11-08] MED LIST changes: +VITA-243 PO; -VITA500T PO
[2019-11-08 17:45] LABS: APPEARANCE, URINE HAZY (CLEAR); BACTERIA, URINE AUTO NEGATIVE (NEGATIVE); BILIRUBIN, URINE AUTO NEGATIVE (NEGATIVE); BLOOD, URINE BLOOD NEGATIVE (NEGATIVE); COLOR, URINE AMBER (YELLOW); GLUCOSE, URINE (UA) AUTO NEGATIVE (NEGATIVE); KETONE, URINE AUTO NEGATIVE (NEGATIVE); LEUKOCYTE ESTERASE, URINE AUTO NEGATIVE (NEGATIVE); MUCUS, URINE SMALL (NEGATIVE); NITRITE, URINE AUTO NEGATIVE (NEGATIVE); PROTEIN, URINE AUTO NEGATIVE (NEGATIVE); RBC, URINE AUTO 1 /HPF (0-3); SQUAMOUS EPITHELIAL CELL UR AU 0 /HPF (0-6); UROBILINOGEN, URINE AUTO 0.2 mg/dL (0.0-2.0); WBC, URINE AUTO 4 /HPF (0-3)
== END ==
LOC: M SMT 16:45
PROVIDERS: ATTEND Nurse Practitioner Women's Health
DX: R31.0 Gross hematuria (principal)
CPT/HCPCS: 51798; 81001; 87086; G0463

== ENCOUNTER → 2020-02-27 | Outpatient (CLI) | payer MEDICARE ==
[~2020-02-27] MED LIST changes: +CALC-212 PO; -CALC600T7 PO; -FLUO10CA15 PO; +FLUO10CA16 PO
--- NOTE | 2020-02-27 10:05 | REP ---
INDICATION: HTN/ PRE-OP. COMPARISON: Comparison chest x-ray May 02, 2019. TECHNIQUE: Two views.. FINDINGS: The lungs are well inflated and clear. Pleural angles are sharp. Heart is enlarged. Cardiothoracic ratio today measures 54.1%. A unipolar pacemaker is again noted in the right heart view of the left side. The thoracic aorta is quite tortuous as before. Heart size is unchanged. Pleural angles are sharp. There are degenerative changes in the thoracic spine. Pulmonary vasculature is not felt to be increased. 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 IMPRESSION: Cardiomegaly with pacemaker. Otherwise no acute disease.. <Electronically signed by Polo Rivera > 02/27/20 [id number]
[2020-02-27 10:24] LABS: HEMATOCRIT 39.6 % (42.0-52.0); MEAN CORPUSCULAR HEMOGLOBIN 33.9 pg (27.0-33.0); MEAN CORPUSCULAR HGB CONC 32.8 g/dl (32.0-36.5); MEAN CORPUSCULAR VOLUME 103.1 fl (80.0-96.0); PLATELET COUNT, AUTOMATED 196 10^3/uL (150-450); RED BLOOD COUNT 3.84 10^6/uL (4.30-6.10); WHITE BLOOD COUNT 5.8 10^3/uL (4.0-10.0)
[2020-02-27 10:41] LABS: INR 2.19; PROTHROMBIN TIME 24.8 SECONDS (12.5-14.3)
[2020-02-27 10:59] LABS: ALBUMIN 3.6 GM/DL (3.2-5.2); ALT/SGPT 21 U/L (12-78); BILIRUBIN,TOTAL 1.5 MG/DL (0.2-1.0); BLOOD UREA NITROGEN 27 MG/DL (7-18); CALCIUM LEVEL 8.7 MG/DL (8.8-10.2); CARBON DIOXIDE LEVEL 32 MEQ/L (21-32); CHLORIDE LEVEL 109 MEQ/L (98-107); CHOLESTEROL LEVEL 160 MG/DL (<200); CHOLESTEROL RISK RATIO 3.076 (<5); CREATININE FOR GFR 1.15 MG/DL (0.70-1.30); GLOMERULAR FILTRATION RATE > 60.0 (>42); GLUCOSE, FASTING 100 MG/DL (70-100); HDL CHOLESTEROL 52 MG/DL (>40); LDL CHOLESTEROL 93 MG/DL (<100); NON-HDL-C 108 MG/DL; POTASSIUM SERUM 4.4 MEQ/L (3.5-5.1); PROSTATIC SPECIFIC AG MONITOR 4.82 NG/ML (< 4.00); SODIUM LEVEL 143 MEQ/L (136-145); TOTAL PROTEIN 6.6 GM/DL (6.4-8.2); TRIGLYCERIDES LEVEL 74 MG/DL (<150)
--- NOTE | 2020-02-27 13:32 | ECGEPIP ---
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 More pacing in comparison to 06/18/2018. Electronically Signed on 02-27-2020 13:32:34 EDT by Valeriano Gaytan
== END ==
LOC: M LAB 09:31
PROVIDERS: ATTEND Family Medicine
DX: Z01.818 Encounter for other preprocedural examination (principal); I11.9 Hypertensive heart disease without heart failure; R94.31 Abnormal electrocardiogram [ECG] [EKG]; Z95.0 Presence of cardiac pacemaker; Z79.899 Other long term (current) drug therapy

== ENCOUNTER → 2020-05-24 | Outpatient (CLI) | payer MEDICARE ==
--- NOTE | 2020-05-24 14:04 | REP ---
INDICATION: LUNG NODULE TENA. COMPARISON: Comparison is made with chest x-rays from February 27, 2020 and May 22, 2020. Comparison is made with CT study of the left shoulder from April 10, 2020. This latter CT study showed a small 3 mm nodule in the left upper lobe.. TECHNIQUE: Helical scanning is acquired. 3 mm axial images are generated. Coronal and sagittal MPR and coronal MIP images are generated. FINDINGS: Digital preliminary strap machine operator radiographs demonstrate a pacemaker in the enlarged heart. There is no evidence of pleural effusion or pericardial effusion. Vascular calcification is seen in the distribution of the left coronary artery and at the aortic arch. Normal adrenal glands are seen. The visualized upper abdominal structures are unremarkable. No extra thoracic mass or adenopathy is observed. No bony destructive lesion is seen. Lung window settings confirm the presence of a very subtle 2-3 mm noncalcified nodule in the left upper lobe. This projects on page 30 of 106 in series 201 of today's study. It is less conspicuous than on the 2 mm slices obtained as part of the CT study of the left shoulder done on April 10, 2020. No other pulmonary nodule is appreciated. Exam is otherwise unremarkable. No mediastinal mass or adenopathy is seen. IMPRESSION: A solitary 2-3 mm noncalcified pulmonary nodule confirmed in the left upper lobe. Follow-up CT study can be performed in 1 year by Fleischner Society criteria cardiomegaly with pacemaker. Vascular calcification. Otherwise no active disease. <Electronically signed by Polo Rivera > 05/24/20 1400
== END ==
LOC: M RAD 13:05
PROVIDERS: ATTEND Family Medicine
DX: R91.1 Solitary pulmonary nodule (principal); I51.7 Cardiomegaly; Z95.0 Presence of cardiac pacemaker

== ENCOUNTER → 2020-06-26 | Outpatient (REF) | payer MEDICARE ==
[2020-06-26 13:21] LABS: APPEARANCE, URINE HAZY (CLEAR); BACTERIA, URINE AUTO 1+ (NEGATIVE); BILIRUBIN, URINE AUTO NEGATIVE (NEGATIVE); BLOOD, URINE BLOOD NEGATIVE (NEGATIVE); COLOR, URINE YELLOW (YELLOW); GLUCOSE, URINE (UA) AUTO NEGATIVE (NEGATIVE); KETONE, URINE AUTO NEGATIVE (NEGATIVE); LEUKOCYTE ESTERASE, URINE AUTO 2+ (NEGATIVE); MUCUS, URINE SMALL (NEGATIVE); NITRITE, URINE AUTO NEGATIVE (NEGATIVE); PROTEIN, URINE AUTO 1+ mg/dL (NEGATIVE); RBC, URINE AUTO 18 /HPF (0-3); SPECIFIC GRAVITY URINE AUTO 1.027 (1.002-1.035); SQUAMOUS EPITHELIAL CELL UR AU 0 /HPF (0-6); UROBILINOGEN, URINE AUTO 0.2 mg/dL (0.0-2.0); WBC, URINE AUTO 51 /HPF (0-3)
== END ==
LOC: M SMT 12:17
PROVIDERS: ATTEND Nurse Practitioner Women's Health
DX: N40.0 Benign prostatic hyperplasia without lower urinary tract symptoms (principal)
CPT/HCPCS: 51798; 81001; 87088; 87186; G0463

== ENCOUNTER → 2020-08-03 | Outpatient (CLI) | payer MEDICARE ==
--- NOTE | 2020-08-06 13:53 | SLEEPCENT ---
NOCTURNAL POLYSOMNOGRAPHY DATE: 08/03/2020 ORDERED BY: Nathan Valles M.D. Nocturnal polysomnography was performed for evaluation of sleep physiology in this patient with a history of excessive somnolence and prior history of apneic disease. 8 hours of data was reviewed. There were 368 minutes of sleep identified. Sleep latency was short at 20 minutes. REM latency was delayed at 237.5 minutes. Sleep architecture initially fragmented improved substantially after interventions were made and there were two REM cycles appreciated. Overall sleep efficiency was 78.1%. The electrocardiogram showed a sinus rhythm with wide complex. Average heart rate of 60 beats per minute; unifocal ventricular ectopic beats were seen. EEG showed normal waveforms for wake and sleep. There were 160 respiratory events identified of 10 seconds in duration or greater for an apnea-hypopnea index of 26. The events were primarily obstructive and having clearly established the presence of obstructive sleep apnea syndrome with associated oxygen desaturations into the low 80s, testing was stopped shortly before 1 a.m. for the application of pressure therapy. The patient was fit with a ResMed F30 full face mask of medium size, 4 cm of water pressure were applied to the circuit and the lights were again extinguished. The patient fell quickly back to sleep and best pressure for palliation of respiratory events was found to be 13 cm with which, the patient slept through REM in the supine posture without respiratory event or oxygen desaturation. IMPRESSION: Severe obstructive sleep apnea syndrome (G47.33), apnea-hypopnea index 26.1. RECOMMENDATION: Nightly use of pressure therapy 13 cm via F30 full face medium size mask.
== END ==
LOC: M SLEEP 20:00
PROVIDERS: ATTEND Internal Medicine Pulmonary Disease
DX: G47.33 Obstructive sleep apnea (adult) (pediatric) (principal)

== ENCOUNTER → 2020-11-28 | Outpatient (CLI) | payer MEDICARE ==
[~2020-11-28] MED LIST changes: +ISOVUE-300 61% 50ML VIAL As Ordered ONE; +LIDOCAINE 1% MDV 20ML VIAL As Ordered ONE; +methylPREDNISolone SUSP 40MG/ML 1ML VIAL (DEPO MEDROL) As Ordered ONE
--- NOTE | 2020-11-29 07:54 | REP ---
INDICATION: OSTEOARTHRITIS LT SHOULDER. COMPARISON: None. TECHNIQUE: The procedure was performed under the direct supervision of Dr. Rivera. The benefits and risks including but not limited to pain infection bleeding and anaphylaxis were explained to the patient and informed consent was obtained. The left glenohumeral joint space was localized using fluoroscopic guidance. The skin was prepped and draped in a sterile fashion. 1% lidocaine was used as a local anesthetic. Using fluoroscopic guidance and last image hold technology a 22 gauge spinal needle was inserted and advanced into the joint. 1 mL of Isovue-300 was injected to verify placement. 7 mL of a solution containing 5 mL of 1% lidocaine and 2 mL of Depo-Medrol 40 mg was injected. The needle was then removed. The patient tolerated the procedure well and there were no immediate complications. Less than 6 seconds of fluoroscopy time was utilized for this procedure. FINDINGS: None IMPRESSION: Fluoro guidance for right shoulder injection. <Electronically signed by Gregory Knox > 11/28/20 [id number] <Electronically signed by Polo Rivera > 11/29/20 [id number]
== END ==
LOC: M RADPRO 10:51
PROVIDERS: ATTEND Physician Assistant
DX: M19.012 Primary osteoarthritis, left shoulder (principal)
CPT/HCPCS: 20610; 77002; J1030; Q9967

== ENCOUNTER → 2021-06-10 | Outpatient (CLI) | payer MEDICARE ==
[~2021-06-10] MED LIST changes: -FLUO10CA16 PO; +FLUO10CA18 PO; -ISOVUE-300 61% 50ML VIAL As Ordered ONE; -LIDOCAINE 1% MDV 20ML VIAL As Ordered ONE; +LOSA25TA13 PO; -LOSA25TA14 PO; -methylPREDNISolone SUSP 40MG/ML 1ML VIAL (DEPO MEDROL) As Ordered ONE
== END ==
LOC: M RAD 10:23
PROVIDERS: ATTEND Internal Medicine Pulmonary Disease
DX: R91.8 Other nonspecific abnormal finding of lung field (principal)

== ENCOUNTER → 2021-09-19 | Outpatient (CLI) | payer MEDICARE | LOC: M RAD 11:53 | PROVIDERS: ATTEND Nurse Practitioner Women's Health | DX: R93.5 Abnormal findings on diagnostic imaging of other abdominal regions, including retroperitoneum (principal); R10.30 Lower abdominal pain, unspecified; R19.09 Other intra-abdominal and pelvic swelling, mass and lump ==

== ENCOUNTER → 2021-11-06 | Outpatient (CLI) | payer MEDICARE ==
[~2021-11-06] MED LIST changes: +ACET300T48 PO; +ALBU8.5H INH; +ALPH0.156 OS; +B-122500 PO; +BREO1INH INH; +GABA-282 PO; +MELO7.5T35 PO; +OXYB-54 PO
== END ==
LOC: M LABSMTC 10:55
PROVIDERS: ATTEND Anesthesiology
DX: Z01.812 Encounter for preprocedural laboratory examination (principal); Z11.52 Encounter for screening for COVID-19

== ENCOUNTER → 2021-11-18 | Outpatient (CLI) | payer MEDICARE | LOC: M LABSMTC 10:31 | PROVIDERS: ATTEND Anesthesiology | DX: Z11.52 Encounter for screening for COVID-19 (principal); Z20.822 Contact with and (suspected) exposure to COVID-19 ==

== ENCOUNTER 2021-11-20 06:53 | Day surgery (SDC) | payer MEDICARE ==
[~2021-11-20] VITALS: Ht 170.2 cm; Wt 100.7 kg
[~2021-11-20 06:53] MED LIST changes: +CelecoXIB 400 MG CAP PO ONE; +ceFAZolin SOD 2 GM in IV 1 EA IV ONE
[2021-11-20] MEDS ORDERED: LR 1,000 ML IV SCH ×2 (07:10→11:50)
[2021-11-20 07:36] LABS: HEMATOCRIT 39.7 % (42.0-52.0); HEMOGLOBIN 12.8 g/dl (13.5-17.5); MEAN CORPUSCULAR HEMOGLOBIN 33.5 pg (27.0-33.0); MEAN CORPUSCULAR HGB CONC 32.2 g/dl (32.0-36.5); MEAN CORPUSCULAR VOLUME 103.9 fl (80.0-96.0); PLATELET COUNT, AUTOMATED 208 10^3/uL (150-450); RED BLOOD COUNT 3.82 10^6/uL (4.30-6.10); WHITE BLOOD COUNT 6.2 10^3/uL (4.0-10.0)
[2021-11-20] MEDS ORDERED: BUPIVACAINE HCL 0.25% 30ML VIAL As Ordered ONE (07:39)
[2021-11-20] MEDS ORDERED: LIDOCAINE 1% SDV 30ML VIAL As Ordered ONE (07:39)
[2021-11-20 07:48] LABS: INR 1.14
[2021-11-20 07:49] LABS: PARTIAL THROMBOPLASTIN TIME 35.1 SECONDS (25.9-37.0)
[2021-11-20 07:51] LABS: CREATININE FOR GFR 1.28 MG/DL (0.70-1.30); GLOMERULAR FILTRATION RATE 57.4 (>35); POTASSIUM SERUM 4.4 MEQ/L (3.5-5.1)
[2021-11-20] MEDS ORDERED: CelecoXIB 400 MG CAP PO ONE (08:00)
[2021-11-20] MEDS ORDERED: ceFAZolin SOD 2 GM in IV 1 EA IV ONE (08:00)
[2021-11-20] MEDS ORDERED: ACETAMINOPHEN 1000MG 100ML IV BTL (OFIRMEV) (J0131 PER 10MG) As Ordered ONE (09:12)
[2021-11-20] MEDS ORDERED: ONDANSETRON 4MG 2ML VIAL As Ordered ONE (09:12)
[2021-11-20] MEDS ORDERED: dexameTHASONE 4 MG/ML 1ML VIAL (J1100 PER 1MG) As Ordered ONE (09:12)
[2021-11-20] MEDS ORDERED: fentaNYL 250 MCG/5 ML INJECTION As Ordered ONE (09:12)
[2021-11-20] MEDS ORDERED: propofoL 200 MG/20 ML VIAL As Ordered ONE (09:12)
[2021-11-20] MEDS ORDERED: LIDOCAINE 2% INJ 100 MG/5 ML SYRINGE As Ordered ONE (09:12)
[2021-11-20] MEDS ORDERED: ROCURONIUM BROMIDE 50 MG/5 ML VIAL As Ordered ONE ×2 (09:12→09:47)
[2021-11-20] MEDS ORDERED: SUGAMMADEX SODIUM 500 MG/5 ML VIAL (BRIDION) As Ordered ONE (09:24)
[2021-11-20] MEDS ORDERED: PHENYLephrine 500MCG 5ML (100MCG/ML) SYRINGE As Ordered ONE (09:32)
[2021-11-20] MEDS ORDERED: ONDANSETRON 4MG 2ML VIAL IV PRN (11:50)
[2021-11-20] MEDS ORDERED: fentaNYL 100 MCG/2 ML INJECTION IV PRN (11:50)
[2021-11-20] MEDS ORDERED: oxyCODONE 5MG TAB PO PRN (12:35)
[2021-11-20] MEDS ORDERED: NORCO, ANEXSIA 5/325MG TABLET (HYDROcodone/ACETAMINOPHEN) PO PRN ×2 (12:45)
[2021-11-20] MEDS ORDERED: KETOROLAC 30 MG/ML 1ML VIAL IV PRN (12:45)
[2021-11-20 14:25] VITALS: BP 114/67
== END 2021-11-20 14:40 | disposition home or self-care (01) ==
LOC: M SDC 06:53
PROVIDERS: ATTEND Surgery
DX: K40.00 Bilateral inguinal hernia, with obstruction, without gangrene, not specified as recurrent (principal); I10 Essential (primary) hypertension; I48.91 Unspecified atrial fibrillation; Z95.0 Presence of cardiac pacemaker; J45.909 Unspecified asthma, uncomplicated; N40.0 Benign prostatic hyperplasia without lower urinary tract symptoms; Z79.01 Long term (current) use of anticoagulants; Z88.5 Allergy status to narcotic agent; Z79.899 Other long term (current) drug therapy
CPT/HCPCS: 36415; 49650; 80048; 85027; 85610; 85730; C1781; J0131; J1100; J1885; J2405; J3010; S2900

== ENCOUNTER → 2022-01-24 | Outpatient (CLI) | payer MEDICARE ==
[~2022-01-24] MED LIST changes: -CelecoXIB 400 MG CAP PO ONE; -ceFAZolin SOD 2 GM in IV 1 EA IV ONE
[2022-01-24 10:18] LABS: HEMATOCRIT 39.2 % (42.0-52.0); HEMOGLOBIN 12.5 g/dl (13.5-17.5); MEAN CORPUSCULAR HEMOGLOBIN 33.3 pg (27.0-33.0); MEAN CORPUSCULAR HGB CONC 31.9 g/dl (32.0-36.5); MEAN CORPUSCULAR VOLUME 104.5 fl (80.0-96.0); PLATELET COUNT, AUTOMATED 183 10^3/uL (150-450); RED BLOOD COUNT 3.75 10^6/uL (4.30-6.10); WHITE BLOOD COUNT 6.5 10^3/uL (4.0-10.0)
[2022-01-24 10:47] LABS: CALCIUM LEVEL 9.1 MG/DL (8.8-10.2); CREATININE FOR GFR 1.37 MG/DL (0.70-1.30); GLOMERULAR FILTRATION RATE 53.1 (>35); POTASSIUM SERUM 3.7 MEQ/L (3.5-5.1)
== END ==
LOC: M PLALAB 08:19
PROVIDERS: ATTEND Nurse Practitioner Family
DX: R06.02 Shortness of breath (principal); I48.91 Unspecified atrial fibrillation

== ENCOUNTER 2022-03-05 10:41 | Emergency (ER) | payer MEDICARE ==
[~2022-03-05] VITALS: Ht 172.7 cm; Wt 98.2 kg
[2022-03-05] MEDS ORDERED: FLUO20CA22 (11:52)
[2022-03-05] MEDS ORDERED: ASPIRIN 81 MG CHEW TABLET PO ONE (12:00)
[2022-03-05] MEDS ORDERED: IPRATROPIUM 0.5MG/ALBUTEROL 2.5MG INH SOL UD 3ML (DUONEB) NEB PRN (12:05)
[2022-03-05] MEDS ORDERED: dexameTHASONE 20MG/5ML VIAL (J1100 PER 1MG) IV ONE (12:05)
[2022-03-05 12:22] LABS: BASO % 0.3 % (0.0-1.0); EOS # 0.1 10^3/uL (0.0-0.5); EOS % 1.3 % (0.0-3.0); HEMATOCRIT 41.5 % (42.0-52.0); HEMOGLOBIN 13.3 g/dl (13.5-17.5); LYMPH # 0.5 10^3/uL (1.5-5.0); LYMPH % 5.1 % (24.0-44.0); MEAN CORPUSCULAR HEMOGLOBIN 33.3 pg (27.0-33.0); MEAN CORPUSCULAR VOLUME 103.8 fl (80.0-96.0); MONO # 0.6 10^3/uL (0.0-0.8); MONO % 6.6 % (2.0-8.0); NEUTROPHILS # 8.1 10^3/uL (1.5-8.5); NEUTROPHILS % 86.2 % (36.0-66.0); PLATELET COUNT, AUTOMATED 163 10^3/uL (150-450); WHITE BLOOD COUNT 9.4 10^3/uL (4.0-10.0)
[2022-03-05 12:26] LABS: ABG BASE EXCESS 2.8 (-2.0-2.0); ABG O2 SATURATION 95.1 % (95.0-99.0); ABG PARTIAL PRESSURE CO2 35.5 mmHg (35.0-45.0); ABG PARTIAL PRESSURE O2 70.2 mmHg (75.0-100.0); ABG STANDARD HCO3 26.9 MEQ/L (22.0-26.0); ABG TOTAL CO2 27.1 MEQ/L (23.0-31.0); ABG pH (ARTERIAL) 7.483 UNITS (7.350-7.450)
[2022-03-05 12:37] LABS: BLOOD UREA NITROGEN 17 MG/DL (7-18); CALCIUM LEVEL 8.6 MG/DL (8.8-10.2); CARBON DIOXIDE LEVEL 30 MEQ/L (21-32); CHLORIDE LEVEL 106 MEQ/L (98-107); CK-MB VALUE MASS < 1.0 NG/ML (<3.6); CPK CREATINE PHOSPHOKINASE 36 U/L (39-308); CREATININE FOR GFR 1.18 MG/DL (0.70-1.30); GLOMERULAR FILTRATION RATE > 60.0 (>35); GLUCOSE, FASTING 140 MG/DL (70-100); MB/CK RELATIVE INDEX 2.78 (< OR =4); NT-PRO BNP 2124 PG/ML (<450); POTASSIUM SERUM 4.2 MEQ/L (3.5-5.1); SODIUM LEVEL 140 MEQ/L (136-145)
[2022-03-05 12:38] LABS: INR 1.95; PROTHROMBIN TIME 22.6 SECONDS (12.5-14.5)
[2022-03-05] MEDS ORDERED: FUROSEMIDE 20MG/2ML VIAL (J1940) IV ONE (13:25)
[2022-03-05 13:49] LABS: CK-MB VALUE MASS < 1.0 NG/ML (<3.6); CPK CREATINE PHOSPHOKINASE 34 U/L (39-308); MB/CK RELATIVE INDEX 2.94 (< OR =4)
[2022-03-05] MEDS ORDERED: CIPROFLOXACIN 500MG TABLET PO ONE (15:20)
[2022-03-05] MEDS ORDERED: CIPR-249 PO (15:23)
[2022-03-05 15:44] VITALS: BP 130/75
== END 2022-03-05 15:55 | disposition home or self-care (01) ==
LOC: M ED 11:43
DX: J00 Acute nasopharyngitis [common cold] (principal); N39.0 Urinary tract infection, site not specified; I48.91 Unspecified atrial fibrillation; I10 Essential (primary) hypertension; Z88.5 Allergy status to narcotic agent
CPT/HCPCS: 71045; 80048; 81000; 81015; 82550; 82553; 82803; 83605; 83880; 84484; 85025; 85610; 87040; 87088; 87186; 87486; 87581; 87633; 87798; 93005; 93041; 94640; 94760; 96374; 96375; 99285; J1100; J1940

== ENCOUNTER 2022-04-04 21:07 | Emergency (ER) | payer MEDICARE ==
[~2022-04-04] VITALS: Ht 172.7 cm; Wt 98.6 kg
[~2022-04-04 21:07] MED LIST changes: +CIPR-249 PO; +FLUO20CA22
[2022-04-05] MEDS ORDERED: ACETAMINOPH W/CODEINE #3 TAB UD PO ONE (01:25)
[2022-04-05 01:56] LABS: BASO # 0.1 10^3/uL (0.0-0.2); BASO % 0.5 % (0.0-1.0); EOS # 0.4 10^3/uL (0.0-0.5); EOS % 3.2 % (0.0-3.0); HEMATOCRIT 42.6 % (42.0-52.0); HEMOGLOBIN 13.8 g/dl (13.5-17.5); LYMPH % 16.8 % (24.0-44.0); MEAN CORPUSCULAR HEMOGLOBIN 33.1 pg (27.0-33.0); MEAN CORPUSCULAR HGB CONC 32.4 g/dl (32.0-36.5); MEAN CORPUSCULAR VOLUME 102.2 fl (80.0-96.0); MONO % 8.2 % (2.0-8.0); NEUTROPHILS # 8.2 10^3/uL (1.5-8.5); NEUTROPHILS % 69.5 % (36.0-66.0); PLATELET COUNT, AUTOMATED 268 10^3/uL (150-450); RED BLOOD COUNT 4.17 10^6/uL (4.30-6.10); WHITE BLOOD COUNT 11.8 10^3/uL (4.0-10.0)
[2022-04-05 02:21] LABS: ALBUMIN 3.7 G/DL (3.2-5.2); BILIRUBIN,DIRECT 0.6 MG/DL (<0.4); BILIRUBIN,TOTAL 1.8 MG/DL (0.3-1.2); TOTAL PROTEIN 6.7 G/DL (5.7-8.2)
[2022-04-05] MEDS ORDERED: ACET-716 PO (03:15)
[2022-04-05 03:45] VITALS: BP 138/95
== END 2022-04-05 04:54 | disposition home or self-care (01) ==
LOC: M ED 21:07
DX: S76.011A Strain of muscle, fascia and tendon of right hip, initial encounter (principal); M25.561 Pain in right knee; M16.11 Unilateral primary osteoarthritis, right hip; M54.16 Radiculopathy, lumbar region; M54.31 Sciatica, right side; I48.91 Unspecified atrial fibrillation; N40.0 Benign prostatic hyperplasia without lower urinary tract symptoms; Z96.641 Presence of right artificial hip joint; Z90.89 Acquired absence of other organs; Z88.5 Allergy status to narcotic agent; Z79.899 Other long term (current) drug therapy; Z79.51 Long term (current) use of inhaled steroids; M79.661 Pain in right lower leg

== ENCOUNTER → 2022-05-13 | Outpatient (REF) | payer MEDICARE ==
[~2022-05-13] MED LIST changes: +ACET-716 PO
[2022-05-13 19:08] LABS: APPEARANCE, URINE MANUAL CLEAR (CLEAR); BILIRUBIN, URINE MANUAL NEGATIVE (NEGATIVE); BLOOD URINE MANUAL NEGATIVE (NEGATIVE); COLOR, URINE MANUAL YELLOW (YELLOW); GLUCOSE, URINE (UA) MANUAL NEGATIVE (NEGATIVE); KETONE, URINE MANUAL NEGATIVE (NEGATIVE); LEUKOCYTE ESTERASE, URINE MAN TRACE (NEGATIVE); NITRITE, URINE MANUAL NEGATIVE (NEGATIVE); PROTEIN, URINE MANUAL NEGATIVE (NEGATIVE); SPECIFIC GRAVITY,URINE MANUAL 1.015 (1.002-1.035); UROBILINOGEN, URINE MANUAL NORMAL (NORMAL)
[2022-05-13 19:48] LABS: BACTERIA, URINE NONE SEEN; CALCIUM OXALATE CRYSTALS,URINE MOD AMOUNT /hpf; HYALINE CAST, URINE 0-1 /lpf (0-1); RBC, URINE 0-1 /hpf (0-3); SQUAMOUS EPITHELIAL CELL URINE NONE SEEN /hpf (SMALL AMT)
== END ==
LOC: M SMT 16:51
PROVIDERS: ATTEND Nurse Practitioner Women's Health
DX: R30.0 Dysuria (principal)

== ENCOUNTER → 2022-06-13 | Outpatient (CLI) | payer MEDICARE | LOC: M PLAIMG 09:07 | PROVIDERS: ATTEND Nurse Practitioner Family | DX: M54.16 Radiculopathy, lumbar region (principal); I70.90 Unspecified atherosclerosis; Z96.641 Presence of right artificial hip joint; M48.061 Spinal stenosis, lumbar region without neurogenic claudication ==

== ENCOUNTER → 2022-07-02 | Outpatient (CLI) | payer MEDICARE ==
[2022-07-02 09:18] LABS: BASO % 0.8 % (0.0-1.0); EOS # 0.3 10^3/uL (0.0-0.5); HEMATOCRIT 40.5 % (42.0-52.0); LYMPH % 19.8 % (24.0-44.0); MEAN CORPUSCULAR HEMOGLOBIN 33.9 pg (27.0-33.0); MEAN CORPUSCULAR HGB CONC 32.1 g/dl (32.0-36.5); MEAN CORPUSCULAR VOLUME 105.5 fl (80.0-96.0); MONO # 0.5 10^3/uL (0.0-0.8); MONO % 9.3 % (2.0-8.0); NEUTROPHILS # 3.4 10^3/uL (1.5-8.5); NEUTROPHILS % 64.9 % (36.0-66.0); PLATELET COUNT, AUTOMATED 199 10^3/uL (150-450); RED BLOOD COUNT 3.84 10^6/uL (4.30-6.10); WHITE BLOOD COUNT 5.3 10^3/uL (4.0-10.0)
[2022-07-02 09:28] LABS: HEMOGLOBIN A1c 5.9 % (4.0-6.0)
[2022-07-02 09:51] LABS: ALBUMIN 3.7 G/DL (3.2-5.2); ALKALINE PHOSPHATASE 54 U/L (46-116); ALT/SGPT 20 U/L (7.0-40); AST/SGOT 19 U/L (<34); BLOOD UREA NITROGEN 26 MG/DL (9-23); CALCIUM LEVEL 9.5 MG/DL (8.3-10.6); CARBON DIOXIDE LEVEL 32 MMOL/L (20-31); CHLORIDE LEVEL 106 MMOL/L (98-107); CHOLESTEROL LEVEL 151 MG/DL (<200); CREATININE FOR GFR 1.21 MG/DL (0.70-1.30); GLOMERULAR FILTRATION RATE > 60.0 (>35); GLUCOSE, FASTING 111 MG/DL (74-106); LDL CHOLESTEROL 88.8 MG/DL (<100); NON-HDL-C 99 MG/DL; POTASSIUM SERUM 4.5 MMOL/L (3.5-5.1); SODIUM LEVEL 143 MMOL/L (136-145); TOTAL PROTEIN 6.3 G/DL (5.7-8.2); TRIGLYCERIDES LEVEL 51 MG/DL (<150)
== END ==
LOC: M LAB 08:24
PROVIDERS: ATTEND Registered Nurse
DX: Z00.00 Encounter for general adult medical examination without abnormal findings (principal); E78.2 Mixed hyperlipidemia; I10 Essential (primary) hypertension

== ENCOUNTER → 2022-07-30 | Outpatient (REF) | payer MEDICARE ==
[2022-07-30 14:33] LABS: APPEARANCE, URINE CLEAR (CLEAR); BACTERIA, URINE AUTO NEGATIVE (NEGATIVE); BILIRUBIN, URINE AUTO NEGATIVE (NEGATIVE); BLOOD, URINE BLOOD NEGATIVE (NEGATIVE); COLOR, URINE YELLOW (YELLOW); GLUCOSE, URINE (UA) AUTO NEGATIVE (NEGATIVE); KETONE, URINE AUTO NEGATIVE (NEGATIVE); LEUKOCYTE ESTERASE, URINE AUTO NEGATIVE (NEGATIVE); MUCUS, URINE SMALL (NEGATIVE); NITRITE, URINE AUTO NEGATIVE (NEGATIVE); PROTEIN, URINE AUTO NEGATIVE (NEGATIVE); RBC, URINE AUTO 1 /HPF (0-3); SPECIFIC GRAVITY URINE AUTO 1.016 (1.002-1.035); SQUAMOUS EPITHELIAL CELL UR AU 0 /HPF (0-6); UROBILINOGEN, URINE AUTO 0.2 mg/dL (0.0-2.0); WBC, URINE AUTO 1 /HPF (0-3)
== END ==
LOC: M SMT 13:09
PROVIDERS: ATTEND Physician Assistant
DX: Z87.898 Personal history of other specified conditions (principal)

== ENCOUNTER 2022-10-01 13:07 | Day surgery (SDC) | payer MEDICARE ==
[~2022-10-01] VITALS: Ht 170.2 cm; Wt 103.1 kg
[~2022-10-01 13:07] MED LIST changes: +CIPROFLOXACIN 0.3% OPHTH OINTMENT As Ordered ONE; -FLUO20CA22; +FLUO20CA22 PO; +LIDOCAINE 2% W/EPINEPHRINE 20ML VIAL **PRES FREE As Ordered ONE; +LIDOCAINE 3.5 % 1ML OPHTH TOPICAL GEL OU ONE
[2022-10-01] MEDS ORDERED: fentaNYL 100 MCG/2 ML INJECTION As Ordered ONE (13:34)
[2022-10-01] MEDS ORDERED: propofoL 200 MG/20 ML VIAL As Ordered ONE ×2 (13:35→14:39)
[2022-10-01] MEDS ORDERED: ACETAMINOPHEN 1000MG 100ML IV BAG As Ordered ONE (14:38)
[2022-10-01] MEDS ORDERED: POVIDONE-IODINE 5% OPHTH PREP SOL 30ML As Ordered ONE (14:50)
[2022-10-01 16:15] VITALS: BP 147/84; TEMP 98; O2SAT 98
== END 2022-10-01 16:22 | disposition home or self-care (01) ==
LOC: M SDC 13:07
PROVIDERS: ATTEND Ophthalmology
DX: H02.401 Unspecified ptosis of right eyelid (principal); H02.834 Dermatochalasis of left upper eyelid; I10 Essential (primary) hypertension; I48.91 Unspecified atrial fibrillation; Z95.0 Presence of cardiac pacemaker; F41.9 Anxiety disorder, unspecified; F32.A Depression, unspecified; J45.909 Unspecified asthma, uncomplicated; R06.02 Shortness of breath; G47.30 Sleep apnea, unspecified; N40.1 Benign prostatic hyperplasia with lower urinary tract symptoms; R32 Unspecified urinary incontinence; Z88.5 Allergy status to narcotic agent; Z79.899 Other long term (current) drug therapy; Z79.51 Long term (current) use of inhaled steroids; Z79.01 Long term (current) use of anticoagulants
CPT/HCPCS: 15823; 67904; 88302; J0131; J3010

== ENCOUNTER → 2023-06-03 | Outpatient (REF) | payer MEDICARE ==
[~2023-06-03] MED LIST changes: -CIPROFLOXACIN 0.3% OPHTH OINTMENT As Ordered ONE; -DOXA2TAB3 PO; +DOXA2TAB61 PO; -LIDOCAINE 2% W/EPINEPHRINE 20ML VIAL **PRES FREE As Ordered ONE; -LIDOCAINE 3.5 % 1ML OPHTH TOPICAL GEL OU ONE
[2023-06-03 14:13] LABS: APPEARANCE, URINE HAZY (CLEAR); BACTERIA, URINE AUTO NEGATIVE (NEGATIVE); BILIRUBIN, URINE AUTO NEGATIVE (NEGATIVE); BLOOD, URINE BLOOD 3+ (NEGATIVE); COLOR, URINE AMBER (YELLOW); GLUCOSE, URINE (UA) AUTO NEGATIVE (NEGATIVE); KETONE, URINE AUTO NEGATIVE (NEGATIVE); LEUKOCYTE ESTERASE, URINE AUTO NEGATIVE (NEGATIVE); MUCUS, URINE SMALL (NEGATIVE); NITRITE, URINE AUTO NEGATIVE (NEGATIVE); PROTEIN, URINE AUTO 1+ mg/dL (NEGATIVE); RBC, URINE AUTO TNTC /HPF (0-3); SPECIFIC GRAVITY URINE AUTO 1.029 (1.002-1.035); SQUAMOUS EPITHELIAL CELL UR AU 0 /HPF (0-6); UROBILINOGEN, URINE AUTO 0.2 mg/dL (0.0-2.0); WBC, URINE AUTO 1 /HPF (0-3)
== END ==
LOC: M SMT 13:19
PROVIDERS: ATTEND Physician Assistant
DX: N39.41 Urge incontinence (principal)

== ENCOUNTER → 2023-08-06 | Outpatient (REF) | payer MEDICARE ==
[~2023-08-06] MED LIST changes: +CYCL5TAB PO; +OCUV1CHW PO; +OMEG10002 PO
[2023-08-06 17:58] LABS: APPEARANCE, URINE CLEAR (CLEAR); BACTERIA, URINE AUTO NEGATIVE (NEGATIVE); BILIRUBIN, URINE AUTO NEGATIVE (NEGATIVE); BLOOD, URINE BLOOD 1+ (NEGATIVE); COLOR, URINE YELLOW (YELLOW); GLUCOSE, URINE (UA) AUTO NEGATIVE (NEGATIVE); KETONE, URINE AUTO NEGATIVE (NEGATIVE); LEUKOCYTE ESTERASE, URINE AUTO NEGATIVE (NEGATIVE); NITRITE, URINE AUTO NEGATIVE (NEGATIVE); PROTEIN, URINE AUTO NEGATIVE (NEGATIVE); RBC, URINE AUTO 1 /HPF (0-3); SPECIFIC GRAVITY URINE AUTO 1.009 (1.002-1.035); SQUAMOUS EPITHELIAL CELL UR AU 0 /HPF (0-6); UROBILINOGEN, URINE AUTO 0.2 mg/dL (0.0-2.0); WBC, URINE AUTO 1 /HPF (0-3)
== END ==
LOC: M SMT 16:57
PROVIDERS: ATTEND Physician Assistant
DX: Z87.898 Personal history of other specified conditions (principal)

== ENCOUNTER 2023-08-08 11:53 | Emergency (ER) | payer MEDICARE ==
[~2023-08-08] VITALS: Ht 167.6 cm; Wt 105.2 kg
[~2023-08-08 11:53] MED LIST changes: -CYCL5TAB PO; -OCUV1CHW PO; -OMEG10002 PO
[2023-08-08 11:54] VITALS: TEMP 97.8
[2023-08-08] MEDS ORDERED: OCUV1CHW PO (12:24)
[2023-08-08] MEDS ORDERED: DOXA2TAB61 PO (12:24)
[2023-08-08] MEDS ORDERED: OMEG10002 PO (12:25)
[2023-08-08 13:05] LABS: VENOUS BASE EXCESS 1.9 (-2.0-2.0); VENOUS HCO3 26.8 MMOL/L (23.0-27.0); VENOUS O2 SATURATION 84.7 % (60.0-80.0); VENOUS PARTIAL PRESSURE CO2 42.9 mmHg (38.0-50.0); VENOUS PARTIAL PRESSURE O2 48.7 mmHg (30.0-50.0); VENOUS PH 7.414 UNITS (7.330-7.430); VENOUS STANDARD HCO3 25.9 MMOL/L; VENOUS TOTAL CO2 28.1 MMOL/L (24.0-28.0)
[2023-08-08 13:10] LABS: BASO % 0.4 % (0.0-1.0); EOS # 0.3 10^3/uL (0.0-0.5); EOS % 3.7 % (0.0-3.0); HEMATOCRIT 39.4 % (42.0-52.0); HEMOGLOBIN 13.1 g/dl (13.5-17.5); LYMPH # 1.5 10^3/uL (1.5-5.0); LYMPH % 18.4 % (24.0-44.0); MEAN CORPUSCULAR HEMOGLOBIN 33.9 pg (27.0-33.0); MEAN CORPUSCULAR HGB CONC 33.2 g/dl (32.0-36.5); MEAN CORPUSCULAR VOLUME 101.8 fl (80.0-96.0); MONO # 0.7 10^3/uL (0.0-0.8); MONO % 9.1 % (2.0-8.0); NEUTROPHILS # 5.4 10^3/uL (1.5-8.5); NEUTROPHILS % 68.1 % (36.0-66.0); PLATELET COUNT, AUTOMATED 219 10^3/uL (150-450); RED BLOOD COUNT 3.87 10^6/uL (4.30-6.10); WHITE BLOOD COUNT 7.9 10^3/uL (4.0-10.0)
[2023-08-08 13:24] LABS: INR 2.14; PARTIAL THROMBOPLASTIN TIME 42.7 SECONDS (24.8-34.2); PROTHROMBIN TIME 23.1 SECONDS (12.5-14.5)
[2023-08-08 13:30] LABS: CK-MB VALUE MASS 1.7 NG/ML (<3.6)
[2023-08-08 13:33] LABS: ALBUMIN 3.6 G/DL (3.2-5.2); BILIRUBIN,DIRECT 0.6 MG/DL (<0.4); BILIRUBIN,TOTAL 1.9 MG/DL (0.3-1.2); CALCIUM LEVEL 8.8 MG/DL (8.3-10.6); CREATININE FOR GFR 1.23 MG/DL (0.70-1.30); GLOMERULAR FILTRATION RATE 59.8 (>35); MB/CK RELATIVE INDEX 3.95 (< OR =4); POTASSIUM SERUM 4.1 MMOL/L (3.5-5.1); TOTAL PROTEIN 6.2 G/DL (5.7-8.2)
[2023-08-08 13:34] LABS: THYROID STIMULATING HORMONE 1.252 uIU/ML (0.55-4.78)
[2023-08-08 13:35] LABS: FREE T4 1.29 NG/DL (0.89-1.76)
[2023-08-08] MEDS: NS 500 ML IV ONE (13:36)
[2023-08-08] MEDS ORDERED: ISOVUE-370 76% 100ML VIAL As Ordered ONE (14:25)
[2023-08-08 14:33] LABS: CK-MB VALUE MASS 1.2 NG/ML (<3.6)
[2023-08-08 14:34] LABS: MB/CK RELATIVE INDEX 2.79 (< OR =4)
[2023-08-08 15:30] VITALS: BP 135/72
[2023-08-08] MEDS ORDERED: CYCL5TAB PO (15:39)
[2023-08-08 15:45] VITALS: O2SAT 96
[2023-08-08] MEDS: CYCLOBENZAPRINE 5MG TABLET PO ONE (15:58)
== END 2023-08-08 15:45 | disposition home or self-care (01) ==
LOC: M ED 13:47
DX: R07.89 Other chest pain (principal); M48.02 Spinal stenosis, cervical region; I51.7 Cardiomegaly; I10 Essential (primary) hypertension; I48.91 Unspecified atrial fibrillation; E78.5 Hyperlipidemia, unspecified; J44.9 Chronic obstructive pulmonary disease, unspecified; Z95.0 Presence of cardiac pacemaker; Z79.01 Long term (current) use of anticoagulants; Z79.899 Other long term (current) drug therapy; Z88.5 Allergy status to narcotic agent
CPT/HCPCS: 71046; 71275; 72125; 73030; 80048; 80076; 82550; 82553; 82803; 83690; 84439; 84443; 84484; 85025; 85610; 85730; 86140; 93005; 93041; 94760; 96360; 96361; 99285; Q9967

== ENCOUNTER → 2023-08-27 | Outpatient (REF) | payer MEDICARE ==
[~2023-08-27] MED LIST changes: +CYCL5TAB PO; +OCUV1CHW PO; +OMEG10002 PO
[2023-08-27 13:52] LABS: APPEARANCE, URINE CLEAR (CLEAR); BACTERIA, URINE AUTO NEGATIVE (NEGATIVE); BILIRUBIN, URINE AUTO NEGATIVE (NEGATIVE); BLOOD, URINE BLOOD 3+ (NEGATIVE); COLOR, URINE YELLOW (YELLOW); GLUCOSE, URINE (UA) AUTO NEGATIVE (NEGATIVE); KETONE, URINE AUTO NEGATIVE (NEGATIVE); LEUKOCYTE ESTERASE, URINE AUTO NEGATIVE (NEGATIVE); NITRITE, URINE AUTO NEGATIVE (NEGATIVE); PROTEIN, URINE AUTO NEGATIVE (NEGATIVE); RBC, URINE AUTO TNTC /HPF (0-3); SPECIFIC GRAVITY URINE AUTO 1.009 (1.002-1.035); SQUAMOUS EPITHELIAL CELL UR AU 0 /HPF (0-6); UROBILINOGEN, URINE AUTO 0.2 mg/dL (0.0-2.0); WBC, URINE AUTO 0 /HPF (0-3)
== END ==
LOC: M SMT 12:22
PROVIDERS: ATTEND Physician Assistant
DX: R32 Unspecified urinary incontinence (principal)

== ENCOUNTER → 2023-09-25 | Outpatient (CLI) | payer MEDICARE ==
[~2023-09-25] MED LIST changes: +FLUO-290 PO; -FLUO10CA18 PO
== END ==
LOC: M RAD 10:21
PROVIDERS: ATTEND Physician Assistant
DX: R31.1 Benign essential microscopic hematuria (principal)

== ENCOUNTER → 2023-10-21 | Outpatient (REF) | payer MEDICARE ==
[~2023-10-21] MED LIST changes: +FLUO-365 PO; -FLUO20CA22 PO
== END ==
LOC: M SMT 17:06
PROVIDERS: ATTEND Urology
DX: R31.29 Other microscopic hematuria (principal)

== ENCOUNTER → 2024-08-09 | Outpatient (REF) | payer MEDICARE ==
[~2024-08-09] MED LIST changes: -CYCL5TAB PO; +CYCL5TAB4 PO; +GABA-1172 PO; -GABA-282 PO
[2024-08-09 15:20] LABS: AMORPHOUS SEDIMENT SMALL (NEGATIVE); APPEARANCE, URINE HAZY (CLEAR); BACTERIA, URINE AUTO NEGATIVE (NEGATIVE); BILIRUBIN, URINE AUTO NEGATIVE (NEGATIVE); BLOOD, URINE BLOOD NEGATIVE (NEGATIVE); COLOR, URINE YELLOW (YELLOW); GLUCOSE, URINE (UA) AUTO NEGATIVE (NEGATIVE); KETONE, URINE AUTO NEGATIVE (NEGATIVE); LEUKOCYTE ESTERASE, URINE AUTO NEGATIVE (NEGATIVE); MUCUS, URINE SMALL (NEGATIVE); NITRITE, URINE AUTO NEGATIVE (NEGATIVE); PROTEIN, URINE AUTO NEGATIVE (NEGATIVE); RBC, URINE AUTO 1 /HPF (0-3); SPECIFIC GRAVITY URINE AUTO 1.012 (1.002-1.035); SQUAMOUS EPITHELIAL CELL UR AU 0 /HPF (0-6); WBC, URINE AUTO 0 /HPF (0-3)
== END ==
LOC: M SMT 14:50
PROVIDERS: ATTEND Physician Assistant
DX: R31.0 Gross hematuria (principal)

== ENCOUNTER 2025-01-05 13:14 | Emergency (ER) | payer MEDICARE ==
[~2025-01-05] VITALS: Ht 172.7 cm; Wt 105.7 kg
[~2025-01-05 13:14] MED LIST changes: +FAMO1TAB11 PO; -FLOM0.4C39 PO; +FLUO40CA PO; +PROZ10CA11 PO; -PROZ10CA7 PO; +TAMS-18 PO
[2025-01-05 14:17] VITALS: BP 124/72; TEMP 98.1; O2SAT 98
== END 2025-01-05 14:19 | disposition home or self-care (01) ==
LOC: M ED 13:14
DX: S61.412A Laceration without foreign body of left hand, initial encounter (principal); Y92.019 Unspecified place in single-family (private) house as the place of occurrence of the external cause; Y93.9 Activity, unspecified; Y99.9 Unspecified external cause status; W22.03XA Walked into furniture, initial encounter; I48.91 Unspecified atrial fibrillation; Z88.5 Allergy status to narcotic agent; Z79.01 Long term (current) use of anticoagulants; Z79.899 Other long term (current) drug therapy; Z79.810 Long term (current) use of selective estrogen receptor modulators (SERMs)